=== PATIENT | male | born 1960 | race Caucasian/White ===

== ENCOUNTER 2018-05-02 15:29 | Inpatient (IN) | payer MEDICARE, MEDICAID ==
[~2018-05-02] VITALS: Ht 170.2 cm; Wt 89.8 kg
[~2018-05-02 15:29] MED LIST: ASPI-1159 PO; ATOR-2 PO; CITA10TA9 PO; CLOP75TA33 PO; CYM20 PO; FENO145 PO; HUMALOG KWIKPEN; LEVO250T2 PO; LOPE2TAB26 GT; LOSA100T14 PO; METO-539 PO; OMEP40CA34 PO
[2018-05-02] MEDS ORDERED: ACETAMINOPHEN 325MG TABLET PO STA (15:52)
[2018-05-02] MEDS ORDERED: SODIUM CHLORIDE 0.9% 1,000 ML IV ONE (16:00)
[2018-05-02] MEDS ORDERED: ACETAMINOPHEN 325MG TABLET PO ONE (16:00)
[2018-05-02] MEDS ORDERED: ONDANSETRON HCL 4MG/2ML INJ IV STA (16:00)
[2018-05-02 16:41] LABS: BASOPHILS % 0.3 % (0.0-2.0); EOSINOPHILS % 1.6 % (0.0-5.0); HEMATOCRIT. 39.2 % (42.0-52.0); HEMOGLOBIN. 12.8 g/dL (14.0-18.0); LYMPHOCYTES % 8.9 % (20.0-50.0); MEAN CORPUSCULAR HEMOGLOBIN 28.3 pg (28.0-32.0); MEAN CORPUSCULAR VOLUME 86.3 fL (80.0-94.0); MEAN PLATELET VOLUME 8.9 fl (7.4-10.4); MONOCYTES % 4.9 % (2.0-8.0); NEUTROPHILS % 84.3 % (40.0-76.0); PLATELET 225 x1000/uL (130-400); RED BLOOD CELL COUNT 4.54 mill/uL (4.7-6.1); RED CELL DISTRIBUTION WIDTH 14.4 % (11.6-14.6)
[2018-05-02 16:46] LABS: CHLORIDE 107 mEq/L (98-107); PROTHROMBIN TIME 10.3 sec (9.1-11.1)
[2018-05-02] MEDS ORDERED: CEFTRIAXONE 1 G PREMIX 50 ML IV ONE (19:45)
[2018-05-02] MEDS ORDERED: SODIUM CHLORIDE 0.9% 1000ML BAG (SEPSIS BOLUS) IV ONE (19:45)
[2018-05-02] MEDS ORDERED: LEVOFLOXACIN 500MG PREMIX 100 ML IV ONE (20:00)
[2018-05-02 20:16] LABS: CLARITY URINE CLEAR (CLEAR); COLOR URINE YELLOW (YELLOW); KETONES URINE NEGATIVE (NEGATIVE); LEUKOCYTE ESTERASE URINE 1+ (NEGATIVE); NITRITE URINE NEGATIVE (NEGATIVE); OCCULT BLOOD URINE NEGATIVE (NEGATIVE); PROTEIN URINE TRACE (NEGATIVE); SPECIFIC GRAVITY URINE 1.017 (1.005-1.030)
[2018-05-03 12:22] VITALS: BP 117/68
[2018-05-03] MEDS: INSULIN LISPRO 100 UNITS/ML SUBCUT SCH ×3 (13:10→21:00)
[2018-05-03] MEDS ORDERED: ONDANSETRON HCL 4MG/2ML INJ IV PRN (13:15)
[2018-05-03] MEDS ORDERED: TRAMADOL 50MG TABLET PO PRN (13:15)
[2018-05-03] MEDS ORDERED: DEXTROSE 50% WATER 50ML SYRINGE IV PRN (13:15)
[2018-05-03] MEDS ORDERED: IPRATROPIUM/ALBUTEROL 0.5-3(2.5)MG/3ML NEB HHN PRN (14:00)
[2018-05-03 15:43] VITALS: BP 120/73
[2018-05-03] MEDS: DULOXETINE HCL 20MG DR CAPSULE PO SCH (16:04)
[2018-05-03] MEDS: SODIUM CHLORIDE 0.45% 1,000 ML IV SCH (16:04)
[2018-05-03] MEDS: LOPERAMIDE 2 MG/10 ML UDC GT SCH ×2 (17:00→22:02)
[2018-05-03 17:13] LABS: BASOPHILS % 0.5 % (0.0-2.0); EOSINOPHILS % 5.6 % (0.0-5.0); HEMATOCRIT. 33.9 % (42.0-52.0); HEMOGLOBIN. 11.3 g/dL (14.0-18.0); LYMPHOCYTES % 32.3 % (20.0-50.0); MEAN CORPUSCULAR HEMOGLOBIN 28.9 pg (28.0-32.0); MEAN CORPUSCULAR VOLUME 86.9 fL (80.0-94.0); MEAN PLATELET VOLUME 8.8 fl (7.4-10.4); MONOCYTES % 7.5 % (2.0-8.0); NEUTROPHILS % 54.1 % (40.0-76.0); PLATELET 199 x1000/uL (130-400); RED CELL DISTRIBUTION WIDTH 14.2 % (11.6-14.6)
[2018-05-03 17:16] LABS: CHLORIDE 112 mEq/L (98-107)
[2018-05-03] MEDS: BLOOD SUGAR DIAGNOSTIC STRIP TEST SCH ×2 (17:19→21:00)
[2018-05-03 17:22] LABS: PHOSPHORUS 3.1 mg/dL (2.5-4.9)
[2018-05-03] MEDS: METRONIDAZOLE 500 MG PREMIX 100 ML IV SCH (18:43)
[2018-05-03 18:52] VITALS: BP 124/78
[2018-05-03 20:00] VITALS: BP 122/72
[2018-05-03] MEDS ORDERED: ATORVASTATIN CALCIUM 40MG TABLET PO SCH (21:00)
[2018-05-03] MEDS ORDERED: MEDICATION NOT ON FORMULARY EA (Atorvastatin Calcium 80 MG) PO SCH (21:00)
[2018-05-03] MEDS ORDERED: LOPERAMIDE HCL 2 MG GT SCH (21:00)
[2018-05-03] MEDS: LEVOFLOXACIN 500MG PREMIX 100 ML IV SCH (22:01)
[2018-05-03] MEDS: METOPROLOL TARTRATE 25MG TABLET PO SCH (22:08)
[2018-05-03] MEDS: ATORVASTATIN CALCIUM 40MG TABLET PO SCH (22:16)
[2018-05-04 00:38] VITALS: BP 99/51
[2018-05-04] MEDS: METRONIDAZOLE 500 MG PREMIX 100 ML IV SCH ×3 (01:46→17:55)
[2018-05-04] MEDS: SODIUM CHLORIDE 0.45% 1,000 ML IV SCH ×3 (01:50→21:45)
[2018-05-04 04:00] VITALS: BP 114/66
[2018-05-04] MEDS: INSULIN LISPRO 100 UNITS/ML SUBCUT SCH ×4 (07:37→21:00)
[2018-05-04] MEDS: BLOOD SUGAR DIAGNOSTIC STRIP TEST SCH ×4 (07:37→21:00)
[2018-05-04 07:41] LABS: BASOPHILS % 0.6 % (0.0-2.0); EOSINOPHILS % 8.9 % (0.0-5.0); HEMATOCRIT. 33.3 % (42.0-52.0); HEMOGLOBIN. 11.1 g/dL (14.0-18.0); LYMPHOCYTES % 36.2 % (20.0-50.0); MEAN CORPUSCULAR HEMOGLOBIN 28.8 pg (28.0-32.0); MEAN CORPUSCULAR VOLUME 86.6 fL (80.0-94.0); MEAN PLATELET VOLUME 8.9 fl (7.4-10.4); MONOCYTES % 8.4 % (2.0-8.0); NEUTROPHILS % 45.9 % (40.0-76.0); PLATELET 188 x1000/uL (130-400); RED BLOOD CELL COUNT 3.84 mill/uL (4.7-6.1); RED CELL DISTRIBUTION WIDTH 14.1 % (11.6-14.6)
[2018-05-04 08:00] VITALS: BP 117/80
[2018-05-04 08:53] LABS: CHLORIDE 109 mEq/L (98-107)
[2018-05-04] MEDS ORDERED: MEDICATION NOT ON FORMULARY EA (Omeprazole 40 MG) PO SCH (09:00)
[2018-05-04] MEDS ORDERED: MEDICATION NOT ON FORMULARY EA (Clopidogrel Bisulfate (Clopidogrel) 75 MG) PO SCH (09:00)
[2018-05-04] MEDS ORDERED: MEDICATION NOT ON FORMULARY EA (Citalopram Hydrobromide (Citalopram Hbr) 10 MG) PO SCH (09:00)
[2018-05-04 09:01] LABS: LDL CHOLESTEROL 36 mg/dL (5-100)
[2018-05-04 09:03] LABS: HDL CHOLESTEROL 26 mg/dL (40-59)
[2018-05-04] MEDS: METOPROLOL TARTRATE 25MG TABLET PO SCH ×2 (09:52→21:39)
[2018-05-04] MEDS: ASPIRIN 81MG TABLET PO SCH (09:52)
[2018-05-04] MEDS: LOPERAMIDE 2 MG/10 ML UDC GT SCH ×2 (09:52→13:00)
[2018-05-04] MEDS: CLOPIDOGREL 75MG TABLET PO SCH (09:52)
[2018-05-04] MEDS: OMEPRAZOLE 20MG CAPSULE EXTENDED RELEASE PO SCH ×2 (09:53→21:39)
[2018-05-04] MEDS: FENOFIBRATE NANOCRYSTALLIZED 145MG TABLET PO SCH (09:55)
[2018-05-04] MEDS: CITALOPRAM HYDROBROMIDE 10MG TABLET PO SCH (09:55)
[2018-05-04] MEDS: DULOXETINE HCL 20MG DR CAPSULE PO SCH ×2 (09:56→16:14)
[2018-05-04 12:00] VITALS: BP 116/56
[2018-05-04 16:00] VITALS: BP 115/89
[2018-05-04 20:00] VITALS: BP 94/53
[2018-05-04] MEDS: LEVOFLOXACIN 500MG PREMIX 100 ML IV SCH (20:00)
[2018-05-04] MEDS: ATORVASTATIN CALCIUM 40MG TABLET PO SCH (21:38)
[2018-05-05] VITALS: BP 112/61
[2018-05-05] MEDS: METRONIDAZOLE 500 MG PREMIX 100 ML IV SCH ×3 (02:37→19:42)
[2018-05-05 04:00] VITALS: BP 103/62
[2018-05-05 06:56] LABS: BASOPHILS % 0.8 % (0.0-2.0); CHLORIDE 108 mEq/L (98-107); EOSINOPHILS % 11.6 % (0.0-5.0); HEMATOCRIT. 37.7 % (42.0-52.0); HEMOGLOBIN. 12.4 g/dL (14.0-18.0); LYMPHOCYTES % 36.5 % (20.0-50.0); MEAN CORPUSCULAR HEMOGLOBIN 28.7 pg (28.0-32.0); MEAN CORPUSCULAR VOLUME 87.1 fL (80.0-94.0); MEAN PLATELET VOLUME 9.2 fl (7.4-10.4); MONOCYTES % 9.2 % (2.0-8.0); NEUTROPHILS % 41.9 % (40.0-76.0); PLATELET 211 x1000/uL (130-400); RED BLOOD CELL COUNT 4.33 mill/uL (4.7-6.1); RED CELL DISTRIBUTION WIDTH 14.2 % (11.6-14.6)
[2018-05-05 08:00] VITALS: BP 103/63
[2018-05-05] MEDS: BLOOD SUGAR DIAGNOSTIC STRIP TEST SCH ×4 (08:07→21:07)
[2018-05-05] MEDS: INSULIN LISPRO 100 UNITS/ML SUBCUT SCH ×4 (08:07→21:00)
[2018-05-05] MEDS: METOPROLOL TARTRATE 25MG TABLET PO SCH ×2 (09:00→21:00)
[2018-05-05] MEDS: SODIUM CHLORIDE 0.45% 1,000 ML IV SCH ×2 (10:11→23:49)
[2018-05-05] MEDS: OMEPRAZOLE 20MG CAPSULE EXTENDED RELEASE PO SCH ×2 (10:30→21:00)
[2018-05-05] MEDS: CLOPIDOGREL 75MG TABLET PO SCH (10:30)
[2018-05-05] MEDS: FENOFIBRATE NANOCRYSTALLIZED 145MG TABLET PO SCH (10:30)
[2018-05-05] MEDS: CITALOPRAM HYDROBROMIDE 10MG TABLET PO SCH (10:30)
[2018-05-05] MEDS: DULOXETINE HCL 20MG DR CAPSULE PO SCH ×2 (10:30→17:00)
[2018-05-05] MEDS: ASPIRIN 81MG TABLET PO SCH (10:31)
[2018-05-05 20:00] VITALS: BP 120/69
[2018-05-05] MEDS: PANTOPRAZOLE SODIUM 40 MG/VIAL IV SCH (20:55)
[2018-05-05] MEDS: LEVOFLOXACIN 500MG PREMIX 100 ML IV SCH (20:55)
[2018-05-05] MEDS: ATORVASTATIN CALCIUM 40MG TABLET PO SCH (21:00)
[2018-05-06] VITALS: BP 124/78
[2018-05-06] MEDS: METRONIDAZOLE 500 MG PREMIX 100 ML IV SCH ×3 (01:14→19:35)
[2018-05-06] MEDS: BLOOD SUGAR DIAGNOSTIC STRIP TEST SCH ×3 (05:22→21:00)
[2018-05-06 06:27] LABS: BASOPHILS % 0.7 % (0.0-2.0); EOSINOPHILS % 7.1 % (0.0-5.0); HEMATOCRIT. 36.1 % (42.0-52.0); HEMOGLOBIN. 12.1 g/dL (14.0-18.0); LYMPHOCYTES % 31.8 % (20.0-50.0); MEAN CORPUSCULAR VOLUME 86.4 fL (80.0-94.0); MEAN PLATELET VOLUME 8.6 fl (7.4-10.4); MONOCYTES % 6.4 % (2.0-8.0); PLATELET 192 x1000/uL (130-400); RED BLOOD CELL COUNT 4.17 mill/uL (4.7-6.1); RED CELL DISTRIBUTION WIDTH 14.1 % (11.6-14.6)
[2018-05-06 06:30] LABS: INR 1.1; PARTIAL THROMBOPLASTIN TIME 26.6 sec (23.4-31.0); PROTHROMBIN TIME 11.1 sec (9.1-11.1)
[2018-05-06 06:42] LABS: CHLORIDE 107 mEq/L (98-107)
[2018-05-06] MEDS: INSULIN LISPRO 100 UNITS/ML SUBCUT SCH ×4 (07:30→21:00)
[2018-05-06 08:00] VITALS: BP 115/70
[2018-05-06] MEDS: CITALOPRAM HYDROBROMIDE 10MG TABLET PO SCH (09:00)
[2018-05-06] MEDS: FENOFIBRATE NANOCRYSTALLIZED 145MG TABLET PO SCH (09:00)
[2018-05-06] MEDS: METOPROLOL TARTRATE 25MG TABLET PO SCH ×2 (09:00→21:32)
[2018-05-06] MEDS: OMEPRAZOLE 20MG CAPSULE EXTENDED RELEASE PO SCH ×2 (09:00→21:32)
[2018-05-06] MEDS: DULOXETINE HCL 20MG DR CAPSULE PO SCH ×2 (09:00→21:33)
[2018-05-06] MEDS: PANTOPRAZOLE SODIUM 40 MG/VIAL IV SCH ×2 (10:09→21:31)
[2018-05-06] MEDS ORDERED: LIDOCAINE HCL 1% 20ML VIAL (Pyxis) INJ ONE (13:04)
[2018-05-06] MEDS: SODIUM CHLORIDE 0.45% 1,000 ML IV SCH (13:37)
[2018-05-06] MEDS ORDERED: SODIUM CHLORIDE 0.9% 10ML VIAL ONE (13:52)
[2018-05-06] MEDS ORDERED: MIDAZOLAM HCL 5 MG/5 ML VIAL ONE (17:11)
[2018-05-06] MEDS ORDERED: FENTANYL CITRATE/PF 50MCG/ML 2ML VIAL ONE (17:12)
[2018-05-06] MEDS ORDERED: MIDAZOLAM HCL 5 MG/5 ML VIAL IV PRN (17:12)
[2018-05-06] MEDS ORDERED: FENTANYL CITRATE/PF 50MCG/ML 2ML VIAL IV PRN (17:13)
[2018-05-06 20:00] VITALS: BP 134/79
[2018-05-06] MEDS ORDERED: DEXT 5%/0.45% NACL 1000ML 1,000 ML IV SCH (20:45)
[2018-05-06] MEDS: ATORVASTATIN CALCIUM 40MG TABLET PO SCH (21:31)
[2018-05-06] MEDS: LEVOFLOXACIN 500MG PREMIX 100 ML IV SCH (21:31)
[2018-05-06 22:51] VITALS: BP 134/71
[2018-05-07] VITALS: BP 131/71
[2018-05-07] MEDS: METRONIDAZOLE 500 MG PREMIX 100 ML IV SCH (02:08)
== END 2018-05-07 03:00 | disposition home health service (06) | DRG 871 ==
LOC: ER 15:29 → 7WST 19:48 → EDBEDREQSVC 20:06 → EDBEDREQ 20:06 → ENRESERV 05-03 07:35
PROVIDERS: ADMIT Family Medicine Adult Medicine; ATTEND Family Medicine Adult Medicine
PROC: 0D20XUZ Change Feeding Device in Upper Intestinal Tract, External Approach (ICD-10-PCS; principal; 2018-05-06 16:00)
DX: A40.1 Sepsis due to streptococcus, group B (principal); J69.0 Pneumonitis due to inhalation of food and vomit; J96.00 Acute respiratory failure, unspecified whether with hypoxia or hypercapnia; N39.0 Urinary tract infection, site not specified; E44.1 Mild protein-calorie malnutrition; K94.23 Gastrostomy malfunction; I69.351 Hemiplegia and hemiparesis following cerebral infarction affecting right dominant side; E11.9 Type 2 diabetes mellitus without complications; D64.9 Anemia, unspecified; Y83.8 Other surgical procedures as the cause of abnormal reaction of the patient, or of later complication, without mention of misadventure at the time of the procedure; Y73.8 Miscellaneous gastroenterology and urology devices associated with adverse incidents, not elsewhere classified; K52.9 Noninfective gastroenteritis and colitis, unspecified; E78.00 Pure hypercholesterolemia, unspecified; E78.5 Hyperlipidemia, unspecified; E86.0 Dehydration; I11.9 Hypertensive heart disease without heart failure; K29.70 Gastritis, unspecified, without bleeding; K57.30 Diverticulosis of large intestine without perforation or abscess without bleeding; N28.1 Cyst of kidney, acquired; R13.12 Dysphagia, oropharyngeal phase; I69.320 Aphasia following cerebral infarction; Z68.31 Body mass index [BMI] 31.0-31.9, adult; Z79.82 Long term (current) use of aspirin; Z79.899 Other long term (current) drug therapy; Z79.2 Long term (current) use of antibiotics
CPT/HCPCS: 36415; 71045; 74176; 80048; 80061; 82962; 83036; 83605; 83735; 84100; 84145; 84443; 84484; 87804; 93005; 93306; 96365; 99285; A4216; C9113; J0696; J1956; J2250; J2405; J3010; J3490; J7030; J7050; J7060

== ENCOUNTER 2018-09-22 11:24 | Inpatient (IN) | payer MEDICARE, MEDICAID ==
[~2018-09-22] VITALS: Ht 165.1 cm; Wt 84.5 kg
[2018-09-22] MEDS ORDERED: ACETAMINOPHEN 650MG SUPP ONE (11:50)
[2018-09-22] MEDS ORDERED: ONDANSETRON HCL 4MG/2ML INJ ONE (12:10)
[2018-09-22 12:28] LABS: CHLORIDE 112 mEq/L (98-107)
[2018-09-22 12:30] LABS: HEMATOCRIT. 40.1 % (42.0-52.0); HEMOGLOBIN. 12.7 g/dL (14.0-18.0); MEAN CORPUSCULAR HEMOGLOBIN 27.4 pg (28.0-32.0); MEAN CORPUSCULAR VOLUME 86.3 fL (80.0-94.0); MEAN PLATELET VOLUME 8.7 fl (7.4-10.4); PLATELET 269 x1000/uL (130-400); RED BLOOD CELL COUNT 4.65 mill/uL (4.7-6.1); RED CELL DISTRIBUTION WIDTH 14.3 % (11.6-14.6)
[2018-09-22] MEDS ORDERED: VANCOMYCIN 1 G PREMIX 200 ML IV ONE (12:30)
[2018-09-22] MEDS ORDERED: PIPERACILLIN/TAZ 3.375G PREMIX 50 ML IV ONE (12:30)
[2018-09-22] MEDS ORDERED: SODIUM CHLORIDE 0.9% 1000ML BAG (SEPSIS BOLUS) IV ONE (12:30)
[2018-09-22 12:33] LABS: PROTHROMBIN TIME 10.3 sec (9.6-11.0)
[2018-09-22 12:36] LABS: CLARITY URINE CLOUDY (CLEAR); COLOR URINE YELLOW (YELLOW); KETONES URINE NEGATIVE (NEGATIVE); LEUKOCYTE ESTERASE URINE 2+ (NEGATIVE); NITRITE URINE NEGATIVE (NEGATIVE); OCCULT BLOOD URINE 1+ (NEGATIVE); PROTEIN URINE 2+ (NEGATIVE); SPECIFIC GRAVITY URINE 1.013 (1.005-1.030)
[2018-09-22 13:23] LABS: PLATELET ESTIMATE NORMAL
[2018-09-22 16:00] VITALS: BP 133/82
[2018-09-22 16:08] VITALS: BP 123/73
[2018-09-22] MEDS ORDERED: MAGNESIUM/ALUMINUM HYDROXIDE/SIMETHICONE 30ML UDC PO PRN (16:30)
[2018-09-22] MEDS ORDERED: GUAIFENESIN 200MG/10ML SUGAR FREE UDC PO PRN (16:30)
[2018-09-22] MEDS ORDERED: DOCUSATE SODIUM 100MG CAPSULE PO PRN (16:30)
[2018-09-22] MEDS ORDERED: ACETAMINOPHEN 650MG/20.3ML UDC GT PRN (16:30)
[2018-09-22] MEDS ORDERED: ONDANSETRON HCL 4MG/2ML INJ IV PRN (16:30)
[2018-09-22] MEDS ORDERED: TRAMADOL 50MG TABLET PO PRN (16:30)
[2018-09-22] MEDS ORDERED: CLONIDINE 0.1MG TABLET PO PRN (16:30)
[2018-09-22] MEDS ORDERED: IPRATROPIUM/ALBUTEROL 0.5-3(2.5)MG/3ML NEB INH PRN (16:30)
[2018-09-22] MEDS ORDERED: NA PHOS,M-B/NA PHOS,DI-BA ENEMA 118ML PR PRN (16:30)
[2018-09-22 17:59] VITALS: BP 119/59
[2018-09-22 18:00] VITALS: BP 108/69
[2018-09-22] MEDS: ENOXAPARIN 40MG/0.4ML SYR SUBCUT SCH (18:08)
[2018-09-22] MEDS: DEXT 5%/0.9% NACL KCL 20MEQ/L 1,000 ML IV SCH (18:08)
[2018-09-22] MEDS: CEFTRIAXONE 1 G PREMIX 50 ML IV SCH (18:09)
[2018-09-22 20:00] VITALS: BP 118/74
[2018-09-22] MEDS: LEVOFLOXACIN 500MG PREMIX 100 ML IV SCH (21:03)
[2018-09-22] MEDS: FAMOTIDINE 20MG TABLET PO SCH (21:28)
[2018-09-22] MEDS: ASCORBIC ACID 500 MG TABLET PO SCH (21:28)
[2018-09-22] MEDS: METOPROLOL TARTRATE 25MG TABLET PO SCH (21:28)
[2018-09-22 22:00] VITALS: BP 119/66
[2018-09-23] VITALS (13 sets, daily range): BP systolic 114–139; BP diastolic 72–83
[2018-09-23] MEDS: DEXT 5%/0.9% NACL KCL 20MEQ/L 1,000 ML IV SCH ×3 (01:53→18:00)
[2018-09-23] MEDS: FAMOTIDINE 20MG TABLET PO SCH ×2 (10:57→21:00)
[2018-09-23] MEDS: METOPROLOL TARTRATE 25MG TABLET PO SCH ×2 (10:57→21:00)
[2018-09-23] MEDS: CLOPIDOGREL 75MG TABLET PO SCH (10:57)
[2018-09-23] MEDS: ASCORBIC ACID 500 MG TABLET PO SCH ×2 (10:57→21:00)
[2018-09-23] MEDS: ENOXAPARIN 40MG/0.4ML SYR SUBCUT SCH (18:16)
[2018-09-23] MEDS: CEFTRIAXONE 1 G PREMIX 50 ML IV SCH (18:33)
[2018-09-23] MEDS: LEVOFLOXACIN 500MG PREMIX 100 ML IV SCH (21:00)
[2018-09-24] VITALS (9 sets, daily range): BP systolic 120–139; BP diastolic 76–92
[2018-09-24] MEDS: DEXT 5%/0.9% NACL KCL 20MEQ/L 1,000 ML IV SCH (03:30)
[2018-09-24] MEDS: ASCORBIC ACID 500 MG TABLET PO SCH ×2 (09:25→21:33)
[2018-09-24] MEDS: CLOPIDOGREL 75MG TABLET PO SCH (09:25)
[2018-09-24] MEDS: METOPROLOL TARTRATE 25MG TABLET PO SCH ×2 (09:27→21:34)
[2018-09-24] MEDS: FAMOTIDINE 20MG TABLET PO SCH ×2 (09:27→21:34)
[2018-09-24] MEDS: CEFTRIAXONE 1 G PREMIX 50 ML IV SCH (18:19)
[2018-09-24] MEDS: ENOXAPARIN 40MG/0.4ML SYR SUBCUT SCH (18:20)
[2018-09-24] MEDS: LEVOFLOXACIN 500MG PREMIX 100 ML IV SCH (21:33)
[2018-09-25] VITALS: BP 123/83
[2018-09-25 04:00] VITALS: BP 126/83
[2018-09-25 08:00] VITALS: BP 127/80
[2018-09-25] MEDS: FAMOTIDINE 20MG TABLET PO SCH ×2 (10:07→22:30)
[2018-09-25] MEDS: ASCORBIC ACID 500 MG TABLET PO SCH ×2 (10:07→22:30)
[2018-09-25] MEDS: CLOPIDOGREL 75MG TABLET PO SCH (10:07)
[2018-09-25] MEDS: METOPROLOL TARTRATE 25MG TABLET PO SCH ×2 (10:08→22:30)
[2018-09-25 12:00] VITALS: BP 109/44
[2018-09-25 16:00] VITALS: BP 135/91
[2018-09-25] MEDS: CEFAZOLIN 1000MG PREMIX 50 ML IV SCH ×2 (17:20→22:28)
[2018-09-25] MEDS: ENOXAPARIN 40MG/0.4ML SYR SUBCUT SCH (17:21)
[2018-09-25 20:00] VITALS: BP 137/91
[2018-09-26] VITALS: BP 123/70
[2018-09-26 04:00] VITALS: BP 128/57
[2018-09-26] MEDS: CEFAZOLIN 1000MG PREMIX 50 ML IV SCH ×3 (06:18→21:11)
[2018-09-26 07:59] LABS: HEMATOCRIT 37.6 % (42.0-52.0); HEMOGLOBIN 12.4 g/dL (14.0-18.0); MEAN CORPUSCULAR HEMOGLOBIN 28.1 pg (28.0-32.0); PLATELET 278 x1000/uL (130-400); RED BLOOD CELL COUNT 4.43 mill/uL (4.7-6.1); RED CELL DISTRIBUTION WIDTH 14.8 % (11.6-14.6)
[2018-09-26 08:00] VITALS: BP 129/82
[2018-09-26] MEDS: ASCORBIC ACID 500 MG TABLET PO SCH ×2 (09:46→21:11)
[2018-09-26] MEDS: FAMOTIDINE 20MG TABLET PO SCH ×2 (09:46→21:11)
[2018-09-26] MEDS: CLOPIDOGREL 75MG TABLET PO SCH (09:46)
[2018-09-26] MEDS: METOPROLOL TARTRATE 25MG TABLET PO SCH ×2 (09:47→21:11)
[2018-09-26 12:00] VITALS: BP 109/76
[2018-09-26 16:00] VITALS: BP 116/81
[2018-09-26] MEDS: ENOXAPARIN 40MG/0.4ML SYR SUBCUT SCH (17:22)
[2018-09-26 20:00] VITALS: BP 116/82
[2018-09-27] VITALS: BP 123/79
[2018-09-27 04:00] VITALS: BP 111/86
[2018-09-27] MEDS: CEFAZOLIN 1000MG PREMIX 50 ML IV SCH (05:45)
[2018-09-27 08:00] VITALS: BP 134/77
[2018-09-27] MEDS: ASCORBIC ACID 500 MG TABLET PO SCH (08:52)
[2018-09-27] MEDS: FAMOTIDINE 20MG TABLET PO SCH (08:52)
[2018-09-27] MEDS: METOPROLOL TARTRATE 25MG TABLET PO SCH (08:52)
[2018-09-27] MEDS: CLOPIDOGREL 75MG TABLET PO SCH (08:52)
[2018-09-27 12:00] VITALS: BP 120/80
[2018-09-27 12:07] VITALS: BP 120/80
== END 2018-09-27 15:30 | disposition home or self-care (01) | DRG 871 ==
LOC: ER 12:37 → 5EST 13:51 → EDBEDREQ 13:53 → ENRESERV 15:17 → SUPCPDRO 15:59 → 5EST 16:00 → 5WST 09-24 15:57
PROVIDERS: ADMIT Internal Medicine; ATTEND Internal Medicine
DX: A41.9 Sepsis, unspecified organism (principal); G92 Toxic encephalopathy; E44.1 Mild protein-calorie malnutrition; N39.0 Urinary tract infection, site not specified; R65.20 Severe sepsis without septic shock; E11.9 Type 2 diabetes mellitus without complications; I10 Essential (primary) hypertension; Z79.02 Long term (current) use of antithrombotics/antiplatelets; Z79.4 Long term (current) use of insulin; Z86.73 Personal history of transient ischemic attack (TIA), and cerebral infarction without residual deficits; Z93.1 Gastrostomy status; Z79.899 Other long term (current) drug therapy; Z79.2 Long term (current) use of antibiotics; Z79.82 Long term (current) use of aspirin; Z68.31 Body mass index [BMI] 31.0-31.9, adult
CPT/HCPCS: 36415; 71045; 74176; 80061; 83036; 83605; 83880; 84145; 84484; 85027; 87077; 87186; 93005; 93306; 93970; 96365; 96366; 96367; 99291; J0690; J0696; J1650; J1956; J2405; J2543; J3370; J7030; J7050

== ENCOUNTER 2018-12-16 15:06 | Inpatient (IN) | payer MEDICARE, MEDICAID ==
[~2018-12-16] VITALS: Ht 170.2 cm; Wt 89.9 kg
[~2018-12-16 15:06] MED LIST changes: -ASPI-1159 PO; +ASPI-1393 PO; -LOSA100T14 PO; +LOSA100T32 PO
[2018-12-16] MEDS ORDERED: VANCOMYCIN 1 G PREMIX 200 ML IV ONE (15:45)
[2018-12-16] MEDS ORDERED: SODIUM CHLORIDE 0.9% 1000ML BAG (SEPSIS BOLUS) IV ONE (15:45)
[2018-12-16] MEDS ORDERED: PIPERACILLIN/TAZ 3.375G PREMIX 50 ML IV ONE (15:45)
[2018-12-16 16:20] LABS: HEMATOCRIT. 37.6 % (42.0-52.0); HEMOGLOBIN. 12.4 g/dL (14.0-18.0); MEAN CORPUSCULAR VOLUME 85.4 fL (80.0-94.0); PLATELET 241 x1000/uL (130-400); RED BLOOD CELL COUNT 4.41 mill/uL (4.7-6.1); RED CELL DISTRIBUTION WIDTH 16.6 % (11.6-14.6)
[2018-12-16 16:23] LABS: PROTHROMBIN TIME 9.9 sec (9.6-11.0)
[2018-12-16 17:15] LABS: CHLORIDE 106 mEq/L (98-107)
[2018-12-16 17:17] LABS: PLATELET ESTIMATE NORMAL
[2018-12-16 17:47] LABS: CLARITY URINE CLEAR (CLEAR); COLOR URINE YELLOW (YELLOW); KETONES URINE NEGATIVE (NEGATIVE); LEUKOCYTE ESTERASE URINE NEGATIVE (NEGATIVE); NITRITE URINE NEGATIVE (NEGATIVE); OCCULT BLOOD URINE NEGATIVE (NEGATIVE); PROTEIN URINE NEGATIVE (NEGATIVE); SPECIFIC GRAVITY URINE 1.015 (1.005-1.030)
[2018-12-16 20:00] VITALS: BP 95/57
[2018-12-16] MEDS ORDERED: IPRATROPIUM/ALBUTEROL 0.5-3(2.5)MG/3ML NEB INH PRN (21:15)
[2018-12-16] MEDS ORDERED: DEXTROSE 50% WATER 50ML SYRINGE IV PRN (21:15)
[2018-12-16] MEDS ORDERED: NA PHOS,M-B/NA PHOS,DI-BA ENEMA 118ML PR PRN (21:15)
[2018-12-16] MEDS ORDERED: PIPERACILLIN/TAZ 3.375G PREMIX 50 ML IV SCH (21:15)
[2018-12-16] MEDS ORDERED: TRAMADOL 50MG TABLET PO PRN (21:15)
[2018-12-16] MEDS ORDERED: DOCUSATE SODIUM 100MG CAPSULE PO PRN (21:15)
[2018-12-16] MEDS ORDERED: ZOLPIDEM TARTRATE 5MG TABLET PO PRN (21:15)
[2018-12-16] MEDS ORDERED: ONDANSETRON HCL 4MG/2ML INJ IV PRN (21:15)
[2018-12-16] MEDS ORDERED: MAGNESIUM/ALUMINUM HYDROXIDE/SIMETHICONE 30ML UDC PO PRN (21:15)
[2018-12-16] MEDS ORDERED: ACETAMINOPHEN 325MG TABLET PO PRN (21:15)
[2018-12-16] MEDS ORDERED: NITROGLYCERIN 0.4MG TABLET SL SL PRN (21:15)
[2018-12-16] MEDS ORDERED: GUAIFENESIN 200MG/10ML SUGAR FREE UDC PO PRN (21:15)
[2018-12-16] MEDS ORDERED: CLONIDINE 0.1MG TABLET PO PRN (21:15)
[2018-12-16] MEDS ORDERED: KETOROLAC 15MG/ML VIAL IV PRN (21:15)
[2018-12-16] MEDS: DEXT 5%/0.45% NACL 1000ML 1,000 ML IV SCH (23:35)
[2018-12-17] VITALS (7 sets, daily range): BP systolic 92–103; BP diastolic 50–58
[2018-12-17] MEDS: PIPERACILLIN/TAZ 3.375G PREMIX 50 ML IV SCH ×3 (00:37→15:57)
[2018-12-17 01:09] LABS: CREATINE KINASE 39 IU/L (39-308)
[2018-12-17 01:10] LABS: CREATINE KINASE MB FRACTION < 1.0 ng/mL (0.5-3.6)
[2018-12-17] MEDS: VANCOMYCIN 1250MG in DEXTROSE 5% WATER 250ML IV SCH ×2 (02:37→12:56)
[2018-12-17 06:35] LABS: CHLORIDE 108 mEq/L (98-107)
[2018-12-17 06:36] LABS: BASOPHILS % 0.3 % (0.0-2.0); EOSINOPHILS % 3.5 % (0.0-5.0); HEMOGLOBIN. 10.6 g/dL (14.0-18.0); MEAN CORPUSCULAR HEMOGLOBIN 28.2 pg (28.0-32.0); MEAN CORPUSCULAR VOLUME 85.4 fL (80.0-94.0); MEAN PLATELET VOLUME 9.1 fl (7.4-10.4); MONOCYTES % 7.9 % (2.0-8.0); NEUTROPHILS % 60.3 % (40.0-76.0); PLATELET 178 x1000/uL (130-400); RED BLOOD CELL COUNT 3.75 mill/uL (4.7-6.1); RED CELL DISTRIBUTION WIDTH 16.6 % (11.6-14.6)
[2018-12-17 06:55] LABS: CREATINE KINASE 42 IU/L (39-308)
[2018-12-17 06:57] LABS: CREATINE KINASE MB FRACTION < 1.0 ng/mL (0.5-3.6)
[2018-12-17] MEDS: BLOOD SUGAR DIAGNOSTIC STRIP TEST SCH ×4 (07:25→21:14)
[2018-12-17] MEDS: INSULIN LISPRO 100 UNITS/ML SUBCUT SCH ×4 (07:25→21:00)
[2018-12-17] MEDS: ENOXAPARIN 40MG/0.4ML SYR SUBCUT SCH (08:33)
[2018-12-17] MEDS: ZINC SULFATE 220 MG ( 50 ) CAPSULE PO SCH (08:33)
[2018-12-17] MEDS: CLOPIDOGREL 75MG TABLET PO SCH (08:33)
[2018-12-17] MEDS: ASCORBIC ACID 500 MG TABLET PO SCH ×2 (08:34→21:14)
[2018-12-17] MEDS: FAMOTIDINE 20MG TABLET PO SCH ×2 (08:34→21:14)
[2018-12-17] MEDS: DEXT 5%/0.45% NACL 1000ML 1,000 ML IV SCH (08:35)
[2018-12-17] MEDS: ASPIRIN 81MG TABLET PO SCH (08:57)
[2018-12-17] MEDS ORDERED: ASPIRIN 81MG EC TABLET PO SCH (09:00)
[2018-12-17] MEDS: ATORVASTATIN CALCIUM 40MG TABLET PO SCH (21:14)
[2018-12-18] VITALS: BP 101/58
[2018-12-18] MEDS: PIPERACILLIN/TAZ 3.375G PREMIX 50 ML IV SCH ×4 (00:12→23:48)
[2018-12-18] MEDS: VANCOMYCIN 1 G PREMIX 200 ML IV SCH ×2 (02:44→12:36)
[2018-12-18 04:00] VITALS: BP 109/62
[2018-12-18] MEDS: BLOOD SUGAR DIAGNOSTIC STRIP TEST SCH ×4 (06:37→21:00)
[2018-12-18] MEDS: INSULIN LISPRO 100 UNITS/ML SUBCUT SCH ×4 (07:40→21:00)
[2018-12-18 08:00] VITALS: BP 110/65
[2018-12-18] MEDS: CLOPIDOGREL 75MG TABLET PO SCH (08:43)
[2018-12-18] MEDS: ASPIRIN 81MG TABLET PO SCH (08:43)
[2018-12-18] MEDS: FAMOTIDINE 20MG TABLET PO SCH ×2 (08:43→21:39)
[2018-12-18] MEDS: ZINC SULFATE 220 MG ( 50 ) CAPSULE PO SCH (08:43)
[2018-12-18] MEDS: ENOXAPARIN 40MG/0.4ML SYR SUBCUT SCH (08:43)
[2018-12-18] MEDS: ASCORBIC ACID 500 MG TABLET PO SCH ×2 (08:44→21:39)
[2018-12-18 12:00] VITALS: BP 120/71
[2018-12-18 16:00] VITALS: BP 107/69
[2018-12-18 20:00] VITALS: BP 123/65
[2018-12-18] MEDS: ATORVASTATIN CALCIUM 40MG TABLET PO SCH (21:39)
[2018-12-19] VITALS: BP 110/65
[2018-12-19] MEDS: VANCOMYCIN 1 G PREMIX 200 ML IV SCH (00:34)
[2018-12-19 04:00] VITALS: BP 110/68
[2018-12-19] MEDS: BLOOD SUGAR DIAGNOSTIC STRIP TEST SCH ×4 (07:10→21:00)
[2018-12-19] MEDS: INSULIN LISPRO 100 UNITS/ML SUBCUT SCH ×4 (07:40→21:00)
[2018-12-19] MEDS: ASCORBIC ACID 500 MG TABLET PO SCH ×2 (09:12→22:34)
[2018-12-19] MEDS: PIPERACILLIN/TAZ 3.375G PREMIX 50 ML IV SCH ×2 (09:12→17:36)
[2018-12-19] MEDS: CLOPIDOGREL 75MG TABLET PO SCH (09:12)
[2018-12-19] MEDS: ASPIRIN 81MG TABLET PO SCH (09:12)
[2018-12-19] MEDS: FAMOTIDINE 20MG TABLET PO SCH ×2 (09:12→22:34)
[2018-12-19] MEDS: ZINC SULFATE 220 MG ( 50 ) CAPSULE PO SCH (09:12)
[2018-12-19] MEDS: ENOXAPARIN 40MG/0.4ML SYR SUBCUT SCH (09:13)
[2018-12-19 12:00] VITALS: BP 116/72
[2018-12-19 16:00] VITALS: BP 129/76
[2018-12-19 20:00] VITALS: BP 117/67
[2018-12-19] MEDS: ATORVASTATIN CALCIUM 40MG TABLET PO SCH (22:34)
[2018-12-20 00:55] VITALS: BP 121/70
[2018-12-20] MEDS: PIPERACILLIN/TAZ 3.375G PREMIX 50 ML IV SCH ×2 (01:54→10:02)
[2018-12-20 04:00] VITALS: BP_SYST 115; BP_SYST 123; BP_DIAS 70; BP_DIAS 81
[2018-12-20] MEDS: BLOOD SUGAR DIAGNOSTIC STRIP TEST SCH ×3 (07:10→17:39)
[2018-12-20] MEDS: INSULIN LISPRO 100 UNITS/ML SUBCUT SCH ×2 (07:40→12:40)
[2018-12-20] MEDS: CLOPIDOGREL 75MG TABLET PO SCH (10:01)
[2018-12-20] MEDS: ASCORBIC ACID 500 MG TABLET PO SCH (10:01)
[2018-12-20] MEDS: ASPIRIN 81MG TABLET PO SCH (10:01)
[2018-12-20] MEDS: FAMOTIDINE 20MG TABLET PO SCH (10:01)
[2018-12-20] MEDS: ENOXAPARIN 40MG/0.4ML SYR SUBCUT SCH (10:01)
[2018-12-20] MEDS: ZINC SULFATE 220 MG ( 50 ) CAPSULE PO SCH (10:02)
[2018-12-20 12:00] VITALS: BP 122/80
[2018-12-20] MEDS ORDERED: DIPHENHYDRAMINE 25MG CAPSULE PO PRN (13:30)
[2018-12-20 16:00] VITALS: BP 131/81
[2018-12-20] MEDS ORDERED: PIPERACILLIN/TAZOBACTAM 3.375 G in DEXT 5% WATER 100 ML IV SCH (16:00)
[2018-12-20 18:16] VITALS: BP 131/81
[2018-12-20 20:00] VITALS: BP 124/73
== END 2018-12-20 21:00 | disposition home or self-care (01) | DRG 871 ==
LOC: ER 17:06 → 8WST 17:20 → EDBEDREQ 17:29 → EDBEDREQSVC 17:29 → EDBEDREQTM 17:29 → ENRESERV 20:19
PROVIDERS: ADMIT Internal Medicine; ATTEND Internal Medicine
DX: A41.9 Sepsis, unspecified organism (principal); G92 Toxic encephalopathy; E44.1 Mild protein-calorie malnutrition; I69.351 Hemiplegia and hemiparesis following cerebral infarction affecting right dominant side; R65.20 Severe sepsis without septic shock; D63.8 Anemia in other chronic diseases classified elsewhere; E87.5 Hyperkalemia; E11.9 Type 2 diabetes mellitus without complications; E78.00 Pure hypercholesterolemia, unspecified; E78.5 Hyperlipidemia, unspecified; M21.169 Varus deformity, not elsewhere classified, unspecified knee; L89.899 Pressure ulcer of other site, unspecified stage; L89.159 Pressure ulcer of sacral region, unspecified stage; I10 Essential (primary) hypertension; K21.9 Gastro-esophageal reflux disease without esophagitis; Z74.01 Bed confinement status; Z79.4 Long term (current) use of insulin; Z79.2 Long term (current) use of antibiotics; Z79.82 Long term (current) use of aspirin; Z79.899 Other long term (current) drug therapy; Z68.31 Body mass index [BMI] 31.0-31.9, adult
CPT/HCPCS: 36415; 71045; 80061; 80202; 82550; 82553; 82962; 83036; 83605; 83880; 84145; 84484; 93005; 93306; 93970; 96365; 96368; 99291; A6261; J1650; J1885; J2543; J3370; J7030; J7040; J7050; J7060; J7070; A4315

== ENCOUNTER 2019-02-22 10:17 | Inpatient (IN) | payer MEDICARE, OTHER ==
[~2019-02-22] VITALS: Ht 170.2 cm; Wt 91.6 kg
[2019-02-22] MEDS ORDERED: ACETAMINOPHEN 325MG TABLET PO STA (10:23)
[2019-02-22] MEDS ORDERED: SODIUM CHLORIDE 0.9% 1,000 ML IV ONE (10:30)
[2019-02-22] MEDS ORDERED: ACETAMINOPHEN 325MG SUPP PR ONE (10:30)
[2019-02-22 10:46] LABS: HEMATOCRIT. 36.2 % (42.0-52.0); HEMOGLOBIN. 11.6 g/dL (14.0-18.0); MEAN CORPUSCULAR HEMOGLOBIN 27.1 pg (28.0-32.0); MEAN CORPUSCULAR VOLUME 84.3 fL (80.0-94.0)
[2019-02-22 10:52] LABS: CHLORIDE 107 mEq/L (98-107)
[2019-02-22] MEDS ORDERED: VANCOMYCIN 1 G PREMIX 200 ML IV ONE (11:00)
[2019-02-22] MEDS ORDERED: PIPERACILLIN/TAZ 3.375G PREMIX 50 ML IV ONE (11:00)
[2019-02-22 11:07] LABS: CLARITY URINE CLEAR (CLEAR); COLOR URINE YELLOW (YELLOW); KETONES URINE NEGATIVE (NEGATIVE); LEUKOCYTE ESTERASE URINE TRACE (NEGATIVE); NITRITE URINE NEGATIVE (NEGATIVE); OCCULT BLOOD URINE TRACE (NEGATIVE); PH URINE 5.5 (4.5-8.0); PROTEIN URINE 3+ (NEGATIVE); SPECIFIC GRAVITY URINE 1.018 (1.005-1.030)
[2019-02-22 11:28] LABS: PLATELET 315 x1000/uL (130-400)
[2019-02-22 12:35] LABS: BG BASE EXCESS -3.2 mmol/L (-2.0-2.0); BG CARBOXYHEMOGLOBIN 0.7 % (0.5-1.5); BG DEOXYHEMOGLOBIN 5.8 % (0.0-5.0); BG FRACTION INSPIRED OXYGEN 36; BG HCO3 ACT 22.4 mmol/L (22.0-26.0); BG METHEMOGLOBIN 0.2 % (0.0-1.5); BG OXYGEN SATURATION 94.1 % (92.0-98.5); BG OXYHEMOGLOBIN 93.3 % (94.0-97.0); BG PCO2 42.1 mmHg (35.0-45.0); BG PH 7.343 (7.350-7.450); BG PO2 71.7 mmHg (75.0-100.0); BG SAMPLE SITE HEEL; BG TOTAL HEMOGLOBIN 11.7 g/dL (12.0-18.0); BG VENT MODE NASAL CANNULA
[2019-02-22 16:00] VITALS: BP_SYST 135; BP_SYST 143; BP_DIAS 84
[2019-02-22] MEDS ORDERED: ACETAMINOPHEN 325MG TABLET PO PRN (16:00)
[2019-02-22] MEDS ORDERED: CLONIDINE 0.1MG TABLET PO PRN (16:00)
[2019-02-22] MEDS ORDERED: ONDANSETRON HCL 4MG/2ML INJ IV PRN (16:00)
[2019-02-22] MEDS ORDERED: LORAZEPAM 2MG/ML CPJ IV PRN (16:00)
[2019-02-22] MEDS: INSULIN LISPRO 100 UNITS/ML SUBCUT SCH ×2 (17:45→23:45)
[2019-02-22] MEDS ORDERED: DEXTROSE 50% WATER 50ML SYRINGE IV PRN (17:45)
[2019-02-22 18:00] VITALS: BP 131/84
[2019-02-22] MEDS: BLOOD SUGAR DIAGNOSTIC STRIP TEST SCH (18:16)
[2019-02-22] MEDS: SODIUM CHLORIDE 0.9% 1,000 ML IV SCH (18:17)
[2019-02-22] MEDS: LEVOFLOXACIN 500MG PREMIX 100 ML IV SCH (18:17)
[2019-02-22] MEDS: ENOXAPARIN 40MG/0.4ML SYR SUBCUT SCH (18:17)
[2019-02-22 20:00] VITALS: BP 132/92
[2019-02-22 22:00] VITALS: BP 111/82
[2019-02-23] VITALS (12 sets, daily range): BP systolic 109–155; BP diastolic 63–97
[2019-02-23] MEDS: BLOOD SUGAR DIAGNOSTIC STRIP TEST SCH ×5 (00:15→23:45)
[2019-02-23] MEDS: SODIUM CHLORIDE 0.9% 1,000 ML IV SCH (05:32)
[2019-02-23] MEDS: INSULIN LISPRO 100 UNITS/ML SUBCUT SCH ×4 (05:42→23:45)
[2019-02-23 07:20] LABS: CHLORIDE 112 mEq/L (98-107)
[2019-02-23 08:07] LABS: HEMOGLOBIN. 10.4 g/dL (14.0-18.0); MEAN CORPUSCULAR HEMOGLOBIN 27.9 pg (28.0-32.0); MEAN CORPUSCULAR VOLUME 83.4 fL (80.0-94.0); RED BLOOD CELL COUNT 3.72 mill/uL (4.7-6.1); RED CELL DISTRIBUTION WIDTH 15.8 % (11.6-14.6)
[2019-02-23] MEDS: AMLODIPINE 10MG TABLET PO SCH (09:37)
[2019-02-23] MEDS ORDERED: VANCOMYCIN 1250MG in DEXTROSE 5% WATER 250ML IV SCH (13:00)
[2019-02-23] MEDS: LEVOFLOXACIN 500MG PREMIX 100 ML IV SCH (17:18)
[2019-02-23] MEDS: ENOXAPARIN 40MG/0.4ML SYR SUBCUT SCH (17:19)
[2019-02-23] MEDS: VANCOMYCIN 1500MG in DEXTROSE 5% WATER 250ML IV SCH (23:35)
[2019-02-24] VITALS (12 sets, daily range): BP systolic 119–150; BP diastolic 76–136
[2019-02-24] MEDS: SODIUM CHLORIDE 0.9% 1,000 ML IV SCH ×3 (03:27→17:53)
[2019-02-24] MEDS: INSULIN LISPRO 100 UNITS/ML SUBCUT SCH ×4 (05:45→23:45)
[2019-02-24] MEDS: BLOOD SUGAR DIAGNOSTIC STRIP TEST SCH ×4 (06:33→23:45)
[2019-02-24 07:38] LABS: BASOPHILS % 0.8 % (0.0-2.0); EOSINOPHILS % 6.7 % (0.0-5.0); HEMATOCRIT. 34.7 % (42.0-52.0); HEMOGLOBIN. 11.3 g/dL (14.0-18.0); MEAN CORPUSCULAR HEMOGLOBIN 27.5 pg (28.0-32.0); MEAN CORPUSCULAR VOLUME 84.8 fL (80.0-94.0); MEAN PLATELET VOLUME 8.5 fl (7.4-10.4); MONOCYTES % 7.7 % (2.0-8.0); NEUTROPHILS % 55.8 % (40.0-76.0); PLATELET 240 x1000/uL (130-400); RED CELL DISTRIBUTION WIDTH 15.8 % (11.6-14.6)
[2019-02-24 07:49] LABS: CHLORIDE 107 mEq/L (98-107)
[2019-02-24] MEDS: AMLODIPINE 10MG TABLET PO SCH (08:50)
[2019-02-24] MEDS: VANCOMYCIN 1500MG in DEXTROSE 5% WATER 250ML IV SCH (11:37)
[2019-02-24] MEDS: LEVOFLOXACIN 500MG PREMIX 100 ML IV SCH (17:53)
[2019-02-24] MEDS: ENOXAPARIN 30MG/0.3ML SYR SUBCUT SCH (22:06)
[2019-02-24] MEDS ORDERED: VANCOMYCIN 1250MG in DEXTROSE 5% WATER 250ML IV SCH (23:00)
[2019-02-25] VITALS (12 sets, daily range): BP systolic 124–147; BP diastolic 69–98
[2019-02-25] MEDS: INSULIN LISPRO 100 UNITS/ML SUBCUT SCH ×4 (05:45→23:45)
[2019-02-25] MEDS: BLOOD SUGAR DIAGNOSTIC STRIP TEST SCH ×4 (05:56→23:45)
[2019-02-25] MEDS: ENOXAPARIN 30MG/0.3ML SYR SUBCUT SCH ×2 (09:27→21:21)
[2019-02-25] MEDS: AMLODIPINE 10MG TABLET PO SCH (09:27)
[2019-02-25] MEDS: SODIUM CHLORIDE 0.9% 1,000 ML IV SCH (11:36)
[2019-02-25] MEDS: CEFAZOLIN 1000MG PREMIX 50 ML IV SCH ×2 (14:52→21:22)
[2019-02-26] VITALS (9 sets, daily range): BP systolic 111–140; BP diastolic 77–96
[2019-02-26] MEDS: SODIUM CHLORIDE 0.9% 1,000 ML IV SCH (01:54)
[2019-02-26] MEDS: CEFAZOLIN 1000MG PREMIX 50 ML IV SCH ×2 (05:16→12:25)
[2019-02-26] MEDS: BLOOD SUGAR DIAGNOSTIC STRIP TEST SCH ×2 (05:25→11:28)
[2019-02-26] MEDS: INSULIN LISPRO 100 UNITS/ML SUBCUT SCH ×2 (05:25→11:45)
[2019-02-26 06:48] LABS: CHLORIDE 109 mEq/L (98-107)
[2019-02-26] MEDS: ENOXAPARIN 30MG/0.3ML SYR SUBCUT SCH (08:52)
[2019-02-26] MEDS: AMLODIPINE 10MG TABLET PO SCH (08:53)
== END 2019-02-26 16:20 | disposition home or self-care (01) | DRG 871 ==
LOC: ER 10:17 → 5EST 12:48 → EDBEDREQ 12:49 → ENRESERV 13:45
PROVIDERS: ADMIT Hospitalist; ATTEND Hospitalist
DX: A41.51 Sepsis due to Escherichia coli [E. coli] (principal); J96.01 Acute respiratory failure with hypoxia; N39.0 Urinary tract infection, site not specified; R47.01 Aphasia; I69.351 Hemiplegia and hemiparesis following cerebral infarction affecting right dominant side; E44.1 Mild protein-calorie malnutrition; D64.9 Anemia, unspecified; E11.9 Type 2 diabetes mellitus without complications; I10 Essential (primary) hypertension; R13.10 Dysphagia, unspecified; Z79.899 Other long term (current) drug therapy
CPT/HCPCS: 36415; 36600; 71045; 80048; 80202; 81003; 82375; 82805; 82962; 83605; 84145; 84484; 87077; 87186; 87804; 93005; 93970; 96365; 99291; J0690; J1650; J1956; J2060; J2543; J3370; J7030; J7060

== ENCOUNTER 2019-03-06 15:21 | Inpatient (IN) | payer MEDICARE, OTHER ==
[~2019-03-06] VITALS: Ht 172.7 cm; Wt 90.3 kg
[2019-03-06] MEDS ORDERED: ONDANSETRON HCL 4MG/2ML INJ IV STA (15:52)
[2019-03-06] MEDS ORDERED: SODIUM CHLORIDE 0.9% 1,000 ML IV ONE (15:52)
[2019-03-06 16:36] LABS: HEMATOCRIT. 37.9 % (42.0-52.0); HEMOGLOBIN. 12.4 g/dL (14.0-18.0); MEAN CORPUSCULAR HEMOGLOBIN 27.2 pg (28.0-32.0); MEAN PLATELET VOLUME 8.3 fl (7.4-10.4); PLATELET 295 x1000/uL (130-400); RED BLOOD CELL COUNT 4.57 mill/uL (4.7-6.1); RED CELL DISTRIBUTION WIDTH 15.7 % (11.6-14.6)
[2019-03-06 16:39] LABS: PROTHROMBIN TIME 10.2 sec (9.6-11.0)
[2019-03-06 16:42] LABS: CHLORIDE 107 mEq/L (98-107)
[2019-03-06] MEDS ORDERED: VANCOMYCIN 1 G PREMIX 200 ML IV ONE (16:45)
[2019-03-06] MEDS ORDERED: SODIUM CHLORIDE 0.9% 1000ML BAG (SEPSIS BOLUS) IV ONE (16:45)
[2019-03-06] MEDS ORDERED: PIPERACILLIN/TAZ 3.375G PREMIX 50 ML IV ONE (16:45)
[2019-03-06 17:03] LABS: PLATELET ESTIMATE NORMAL
[2019-03-06 17:57] LABS: CLARITY URINE CLEAR (CLEAR); COLOR URINE YELLOW (YELLOW); KETONES URINE NEGATIVE (NEGATIVE); LEUKOCYTE ESTERASE URINE NEGATIVE (NEGATIVE); NITRITE URINE NEGATIVE (NEGATIVE); OCCULT BLOOD URINE NEGATIVE (NEGATIVE); PROTEIN URINE 1+ (NEGATIVE); UROBILINOGEN URINE 0.2 E.U./dL (0.2-1.0)
[2019-03-06] MEDS ORDERED: NITROGLYCERIN 0.4MG TABLET SL SL PRN (18:30)
[2019-03-06] MEDS ORDERED: DEXTROSE 50% WATER 50ML SYRINGE IV PRN (18:30)
[2019-03-06] MEDS ORDERED: IPRATROPIUM/ALBUTEROL 0.5-3(2.5)MG/3ML NEB NEB PRN (18:30)
[2019-03-06] MEDS ORDERED: DOCUSATE SODIUM 100MG CAPSULE PO PRN (18:30)
[2019-03-06] MEDS ORDERED: ONDANSETRON HCL 4MG/2ML INJ IV PRN (18:30)
[2019-03-06] MEDS ORDERED: MORPHINE SULFATE 2 MG/ML CPJ (NOT FOR IM USE) IV PRN (18:30)
[2019-03-06] MEDS ORDERED: ACETAMINOPHEN 325MG TABLET PO PRN (18:30)
[2019-03-06] MEDS ORDERED: TRAMADOL 50MG TABLET PO PRN (18:30)
[2019-03-06] MEDS: BLOOD SUGAR DIAGNOSTIC STRIP TEST SCH (20:51)
[2019-03-06 21:14] VITALS: BP 157/76
[2019-03-06] MEDS: SODIUM CHLORIDE 0.9% 1,000 ML IV SCH (21:21)
[2019-03-06 21:31] VITALS: BP 157/76
[2019-03-06 22:00] VITALS: BP 127/45
[2019-03-06] MEDS: INSULIN LISPRO 100 UNITS/ML SUBCUT SCH (22:00)
[2019-03-06] MEDS: ASCORBIC ACID 500 MG TABLET PO SCH (22:15)
[2019-03-06] MEDS: FAMOTIDINE 20MG TABLET PO SCH (22:15)
[2019-03-06] MEDS: METOPROLOL TARTRATE 25MG TABLET PO SCH (22:15)
[2019-03-06] MEDS: CEFAZOLIN 1,000 MG in DEXTROSE 5% WATER 50 ML IV SCH (23:42)
[2019-03-07] VITALS (12 sets, daily range): BP systolic 109–152; BP diastolic 64–95
[2019-03-07] MEDS ORDERED: LEVOFLOXACIN 500MG PREMIX 100 ML IV SCH
[2019-03-07] MEDS: METRONIDAZOLE 500 MG PREMIX 100 ML IV SCH ×4 (00:14→23:49)
[2019-03-07] MEDS: METOCLOPRAMIDE HCL 10MG/2ML VIAL IV SCH ×5 (00:20→23:48)
[2019-03-07] MEDS: LEVOFLOXACIN 750MG PREMIX 150 ML IV SCH ×2 (00:43→23:49)
[2019-03-07] MEDS: CEFAZOLIN 1,000 MG in DEXTROSE 5% WATER 50 ML IV SCH ×2 (05:18→13:01)
[2019-03-07] MEDS: BLOOD SUGAR DIAGNOSTIC STRIP TEST SCH ×4 (07:30→21:10)
[2019-03-07] MEDS: INSULIN LISPRO 100 UNITS/ML SUBCUT SCH ×4 (08:00→21:00)
[2019-03-07] MEDS: ENOXAPARIN 40MG/0.4ML SYR SUBCUT SCH (09:13)
[2019-03-07] MEDS: ZINC SULFATE 220 MG ( 50 ) CAPSULE PO SCH (09:14)
[2019-03-07] MEDS: FAMOTIDINE 20MG TABLET PO SCH ×2 (09:14→21:10)
[2019-03-07] MEDS: TAMSULOSIN HCL 0.4MG SR CAPSULE PO SCH (09:14)
[2019-03-07] MEDS: ASCORBIC ACID 500 MG TABLET PO SCH ×2 (09:14→21:10)
[2019-03-07] MEDS: METOPROLOL TARTRATE 25MG TABLET PO SCH ×2 (09:15→21:00)
[2019-03-07] MEDS: CLOPIDOGREL 75MG TABLET PO SCH (09:19)
[2019-03-07] MEDS: DUTASTERIDE 0.5MG CAPSULE PO SCH (09:19)
[2019-03-07] MEDS ORDERED: IPRATROPIUM/ALBUTEROL 0.5-3(2.5)MG/3ML NEB HHN PRN (13:00)
[2019-03-07] MEDS: IPRATROPIUM/ALBUTEROL 0.5-3(2.5)MG/3ML NEB HHN SCH ×2 (15:18→20:22)
[2019-03-07] MEDS: ACETYLCYSTEINE 100MG/ML 10% VIAL 4ML INH SCH (15:18)
[2019-03-07] MEDS: SODIUM CHLORIDE 0.9% 1,000 ML IV SCH ×2 (17:51→21:13)
[2019-03-07] MEDS: GUAIFENESIN 200MG/10ML SUGAR FREE UDC PO PRN (21:10)
[2019-03-07] MEDS: ZOLPIDEM TARTRATE 5MG TABLET PO PRN (21:16)
[2019-03-07] MEDS: CEFAZOLIN 1000MG PREMIX 50 ML IV SCH (21:17)
[2019-03-08] VITALS (7 sets, daily range): BP systolic 69–151; BP diastolic 33–81
[2019-03-08] MEDS: IPRATROPIUM/ALBUTEROL 0.5-3(2.5)MG/3ML NEB HHN SCH ×6 (00:51→20:26)
[2019-03-08] MEDS: ACETYLCYSTEINE 100MG/ML 10% VIAL 4ML INH SCH ×2 (00:51→13:43)
[2019-03-08] MEDS: CEFAZOLIN 1000MG PREMIX 50 ML IV SCH ×3 (06:03→22:42)
[2019-03-08] MEDS: METOCLOPRAMIDE HCL 10MG/2ML VIAL IV SCH ×4 (06:03→22:42)
[2019-03-08] MEDS: BLOOD SUGAR DIAGNOSTIC STRIP TEST SCH ×4 (07:30→20:49)
[2019-03-08] MEDS: INSULIN LISPRO 100 UNITS/ML SUBCUT SCH ×4 (08:00→20:49)
[2019-03-08] MEDS: ENOXAPARIN 40MG/0.4ML SYR SUBCUT SCH (08:52)
[2019-03-08] MEDS: DUTASTERIDE 0.5MG CAPSULE PO SCH (08:52)
[2019-03-08] MEDS: FAMOTIDINE 20MG TABLET PO SCH ×2 (08:52→20:59)
[2019-03-08] MEDS: METOPROLOL TARTRATE 25MG TABLET PO SCH ×2 (08:54→20:50)
[2019-03-08] MEDS: ASCORBIC ACID 500 MG TABLET PO SCH ×2 (08:54→20:49)
[2019-03-08] MEDS: TAMSULOSIN HCL 0.4MG SR CAPSULE PO SCH (08:54)
[2019-03-08] MEDS: ZINC SULFATE 220 MG ( 50 ) CAPSULE PO SCH (08:54)
[2019-03-08] MEDS: METRONIDAZOLE 500 MG PREMIX 100 ML IV SCH ×2 (08:55→17:15)
[2019-03-08] MEDS: CLOPIDOGREL 75MG TABLET PO SCH (09:10)
[2019-03-08] MEDS: SODIUM CHLORIDE 0.9% 1,000 ML IV SCH ×2 (13:10→22:42)
[2019-03-08] MEDS: GUAIFENESIN 200MG/10ML SUGAR FREE UDC PO PRN (20:49)
[2019-03-08] MEDS: ZOLPIDEM TARTRATE 5MG TABLET PO PRN (20:49)
[2019-03-08] MEDS: LEVOFLOXACIN 750MG PREMIX 150 ML IV SCH (22:43)
[2019-03-09] VITALS (13 sets, daily range): BP systolic 97–131; BP diastolic 51–86
[2019-03-09] MEDS: IPRATROPIUM/ALBUTEROL 0.5-3(2.5)MG/3ML NEB HHN SCH ×6 (00:22→20:01)
[2019-03-09] MEDS: ACETYLCYSTEINE 100MG/ML 10% VIAL 4ML INH SCH ×3 (00:22→15:31)
[2019-03-09] MEDS: METRONIDAZOLE 500 MG PREMIX 100 ML IV SCH ×3 (00:39→18:18)
[2019-03-09] MEDS: METOCLOPRAMIDE HCL 10MG/2ML VIAL IV SCH ×4 (05:14→23:53)
[2019-03-09] MEDS: CEFAZOLIN 1000MG PREMIX 50 ML IV SCH ×2 (05:15→13:59)
[2019-03-09 07:31] LABS: HEMATOCRIT. 31.5 % (42.0-52.0); HEMOGLOBIN. 10.3 g/dL (14.0-18.0); MEAN CORPUSCULAR HEMOGLOBIN 27.2 pg (28.0-32.0); MEAN CORPUSCULAR VOLUME 82.8 fL (80.0-94.0); MEAN PLATELET VOLUME 8.4 fl (7.4-10.4); PLATELET 236 x1000/uL (130-400)
[2019-03-09 07:36] LABS: CHLORIDE 108 mEq/L (98-107)
[2019-03-09] MEDS: INSULIN LISPRO 100 UNITS/ML SUBCUT SCH ×3 (08:00→18:00)
[2019-03-09] MEDS: BLOOD SUGAR DIAGNOSTIC STRIP TEST SCH ×4 (08:07→23:54)
[2019-03-09] MEDS: DUTASTERIDE 0.5MG CAPSULE PO SCH (08:08)
[2019-03-09] MEDS: METOPROLOL TARTRATE 25MG TABLET PO SCH ×2 (08:08→21:00)
[2019-03-09] MEDS: ENOXAPARIN 40MG/0.4ML SYR SUBCUT SCH (08:08)
[2019-03-09] MEDS: ASCORBIC ACID 500 MG TABLET PO SCH ×2 (08:08→21:55)
[2019-03-09] MEDS: ZINC SULFATE 220 MG ( 50 ) CAPSULE PO SCH (08:09)
[2019-03-09] MEDS: CLOPIDOGREL 75MG TABLET PO SCH (08:09)
[2019-03-09] MEDS: TAMSULOSIN HCL 0.4MG SR CAPSULE PO SCH (08:09)
[2019-03-09] MEDS: FAMOTIDINE 20MG TABLET PO SCH ×2 (08:09→21:55)
[2019-03-09] MEDS ORDERED: VANCOMYCIN 1 G PREMIX 200 ML IV SCH (12:00)
[2019-03-09] MEDS ORDERED: VANCOMYCIN 1,000 MG in DEXT 5% WATER 250 ML IV SCH (12:00)
[2019-03-09] MEDS: SODIUM CHLORIDE 0.9% 1,000 ML IV SCH (13:00)
[2019-03-09 19:39] LABS: PLATELET ESTIMATE NORMAL
[2019-03-09] MEDS: VANCOMYCIN 1250MG in DEXTROSE 5% WATER 250ML IV SCH (22:21)
[2019-03-09] MEDS: LEVOFLOXACIN 750MG PREMIX 150 ML IV SCH (23:53)
[2019-03-10] VITALS (12 sets, daily range): BP systolic 105–142; BP diastolic 41–90
[2019-03-10] MEDS: IPRATROPIUM/ALBUTEROL 0.5-3(2.5)MG/3ML NEB HHN SCH ×6 (00:12→20:10)
[2019-03-10] MEDS: ACETYLCYSTEINE 100MG/ML 10% VIAL 4ML INH SCH ×3 (00:13→17:22)
[2019-03-10] MEDS: METRONIDAZOLE 500 MG PREMIX 100 ML IV SCH ×3 (01:42→17:26)
[2019-03-10] MEDS: BLOOD SUGAR DIAGNOSTIC STRIP TEST SCH ×3 (05:20→17:26)
[2019-03-10] MEDS: METOCLOPRAMIDE HCL 10MG/2ML VIAL IV SCH ×3 (05:20→17:26)
[2019-03-10] MEDS: INSULIN LISPRO 100 UNITS/ML SUBCUT SCH ×4 (05:25→18:00)
[2019-03-10] MEDS: SODIUM CHLORIDE 0.9% 1,000 ML IV SCH ×2 (07:59→16:18)
[2019-03-10] MEDS: ZINC SULFATE 220 MG ( 50 ) CAPSULE PO SCH (08:47)
[2019-03-10] MEDS: FAMOTIDINE 20MG TABLET PO SCH ×2 (08:47→20:33)
[2019-03-10] MEDS: ASCORBIC ACID 500 MG TABLET PO SCH ×2 (08:47→20:32)
[2019-03-10] MEDS: TAMSULOSIN HCL 0.4MG SR CAPSULE PO SCH (08:50)
[2019-03-10] MEDS: ENOXAPARIN 40MG/0.4ML SYR SUBCUT SCH (09:00)
[2019-03-10] MEDS: CLOPIDOGREL 75MG TABLET PO SCH (09:00)
[2019-03-10] MEDS: DUTASTERIDE 0.5MG CAPSULE PO SCH (09:47)
[2019-03-10] MEDS: METOPROLOL TARTRATE 25MG TABLET PO SCH ×2 (09:49→20:33)
[2019-03-10] MEDS: VANCOMYCIN 1250MG in DEXTROSE 5% WATER 250ML IV SCH ×2 (11:05→20:33)
[2019-03-11] VITALS (12 sets, daily range): BP systolic 104–133; BP diastolic 69–103
[2019-03-11] MEDS: METOCLOPRAMIDE HCL 10MG/2ML VIAL IV SCH ×4 (00:06→17:51)
[2019-03-11] MEDS: LEVOFLOXACIN 750MG PREMIX 150 ML IV SCH (00:07)
[2019-03-11] MEDS: IPRATROPIUM/ALBUTEROL 0.5-3(2.5)MG/3ML NEB HHN SCH ×6 (00:19→20:56)
[2019-03-11] MEDS: ACETYLCYSTEINE 100MG/ML 10% VIAL 4ML INH SCH ×3 (00:19→16:10)
[2019-03-11] MEDS: METRONIDAZOLE 500 MG PREMIX 100 ML IV SCH ×3 (01:52→17:51)
[2019-03-11] MEDS: SODIUM CHLORIDE 0.9% 1,000 ML IV SCH (05:41)
[2019-03-11] MEDS: BLOOD SUGAR DIAGNOSTIC STRIP TEST SCH ×4 (05:41→17:50)
[2019-03-11] MEDS: INSULIN LISPRO 100 UNITS/ML SUBCUT SCH ×4 (06:00→17:50)
[2019-03-11 06:23] LABS: HEMATOCRIT. 33.5 % (42.0-52.0); LYMPHOCYTES % 25.9 % (20.0-50.0); MEAN CORPUSCULAR HEMOGLOBIN 27.2 pg (28.0-32.0); MEAN CORPUSCULAR VOLUME 82.7 fL (80.0-94.0); MEAN PLATELET VOLUME 8.2 fl (7.4-10.4); MONOCYTES % 7.6 % (2.0-8.0); NEUTROPHILS % 60.5 % (40.0-76.0); PLATELET 237 x1000/uL (130-400); RED BLOOD CELL COUNT 4.06 mill/uL (4.7-6.1); RED CELL DISTRIBUTION WIDTH 15.9 % (11.6-14.6)
[2019-03-11 06:27] LABS: CHLORIDE 108 mEq/L (98-107)
[2019-03-11] MEDS: ASCORBIC ACID 500 MG TABLET PO SCH ×2 (09:02→21:29)
[2019-03-11] MEDS: CLOPIDOGREL 75MG TABLET PO SCH (09:02)
[2019-03-11] MEDS: VANCOMYCIN 1250MG in DEXTROSE 5% WATER 250ML IV SCH ×2 (09:02→21:29)
[2019-03-11] MEDS: ZINC SULFATE 220 MG ( 50 ) CAPSULE PO SCH (09:02)
[2019-03-11] MEDS: FAMOTIDINE 20MG TABLET PO SCH ×2 (09:02→21:29)
[2019-03-11] MEDS: ENOXAPARIN 40MG/0.4ML SYR SUBCUT SCH (09:03)
[2019-03-11] MEDS: METOPROLOL TARTRATE 25MG TABLET PO SCH ×2 (09:03→21:44)
[2019-03-11] MEDS: TAMSULOSIN HCL 0.4MG SR CAPSULE PO SCH (09:03)
[2019-03-11] MEDS: DUTASTERIDE 0.5MG CAPSULE PO SCH (09:03)
[2019-03-12] VITALS (12 sets, daily range): BP systolic 99–158; BP diastolic 65–91
[2019-03-12] MEDS: METOCLOPRAMIDE HCL 10MG/2ML VIAL IV SCH ×4 (00:23→18:32)
[2019-03-12] MEDS: LEVOFLOXACIN 750MG PREMIX 150 ML IV SCH (00:23)
[2019-03-12] MEDS: METRONIDAZOLE 500 MG PREMIX 100 ML IV SCH ×3 (00:57→18:37)
[2019-03-12] MEDS: IPRATROPIUM/ALBUTEROL 0.5-3(2.5)MG/3ML NEB HHN SCH ×6 (01:01→20:24)
[2019-03-12] MEDS: ACETYLCYSTEINE 100MG/ML 10% VIAL 4ML INH SCH ×2 (01:01→09:11)
[2019-03-12] MEDS: BLOOD SUGAR DIAGNOSTIC STRIP TEST SCH ×4 (06:00→18:32)
[2019-03-12] MEDS: INSULIN LISPRO 100 UNITS/ML SUBCUT SCH ×4 (06:00→18:00)
[2019-03-12] MEDS: TAMSULOSIN HCL 0.4MG SR CAPSULE PO SCH (08:25)
[2019-03-12] MEDS: DUTASTERIDE 0.5MG CAPSULE PO SCH (08:25)
[2019-03-12] MEDS: FAMOTIDINE 20MG TABLET PO SCH ×2 (08:25→21:12)
[2019-03-12] MEDS: METOPROLOL TARTRATE 25MG TABLET PO SCH ×2 (08:25→21:11)
[2019-03-12] MEDS: CLOPIDOGREL 75MG TABLET PO SCH (08:25)
[2019-03-12] MEDS: ZINC SULFATE 220 MG ( 50 ) CAPSULE PO SCH (08:25)
[2019-03-12] MEDS: ASCORBIC ACID 500 MG TABLET PO SCH ×2 (08:25→21:12)
[2019-03-12] MEDS: ENOXAPARIN 40MG/0.4ML SYR SUBCUT SCH (08:26)
[2019-03-12] MEDS: VANCOMYCIN 1250MG in DEXTROSE 5% WATER 250ML IV SCH ×2 (18:31→21:11)
[2019-03-13] VITALS (11 sets, daily range): BP systolic 115–141; BP diastolic 72–96
[2019-03-13] MEDS: METOCLOPRAMIDE HCL 10MG/2ML VIAL IV SCH ×4 (00:14→17:09)
[2019-03-13] MEDS: LEVOFLOXACIN 750MG PREMIX 150 ML IV SCH (00:14)
[2019-03-13] MEDS: ACETYLCYSTEINE 100MG/ML 10% VIAL 4ML INH SCH (00:49)
[2019-03-13] MEDS: IPRATROPIUM/ALBUTEROL 0.5-3(2.5)MG/3ML NEB HHN SCH ×6 (00:53→21:14)
[2019-03-13] MEDS: METRONIDAZOLE 500 MG PREMIX 100 ML IV SCH ×3 (01:26→18:28)
[2019-03-13] MEDS: BLOOD SUGAR DIAGNOSTIC STRIP TEST SCH ×4 (05:38→17:24)
[2019-03-13] MEDS: INSULIN LISPRO 100 UNITS/ML SUBCUT SCH ×4 (05:38→17:25)
[2019-03-13] MEDS: CLOPIDOGREL 75MG TABLET PO SCH (09:37)
[2019-03-13] MEDS: ZINC SULFATE 220 MG ( 50 ) CAPSULE PO SCH (09:37)
[2019-03-13] MEDS: ASCORBIC ACID 500 MG TABLET PO SCH (09:38)
[2019-03-13] MEDS: DUTASTERIDE 0.5MG CAPSULE PO SCH (09:38)
[2019-03-13] MEDS: TAMSULOSIN HCL 0.4MG SR CAPSULE PO SCH (09:38)
[2019-03-13] MEDS: METOPROLOL TARTRATE 25MG TABLET PO SCH ×2 (09:38→21:35)
[2019-03-13] MEDS: ENOXAPARIN 40MG/0.4ML SYR SUBCUT SCH (09:40)
[2019-03-13] MEDS: VANCOMYCIN 1250MG in DEXTROSE 5% WATER 250ML IV SCH ×2 (09:50→21:34)
[2019-03-13] MEDS: FAMOTIDINE 20MG TABLET PO SCH ×2 (12:05→21:35)
[2019-03-14] VITALS (13 sets, daily range): BP systolic 119–140; BP diastolic 64–98
[2019-03-14] MEDS: IPRATROPIUM/ALBUTEROL 0.5-3(2.5)MG/3ML NEB HHN SCH ×6 (01:08→20:59)
[2019-03-14] MEDS: METRONIDAZOLE 500 MG PREMIX 100 ML IV SCH ×3 (01:37→17:42)
[2019-03-14] MEDS: METOCLOPRAMIDE HCL 10MG/2ML VIAL IV SCH ×3 (01:38→17:50)
[2019-03-14] MEDS: LEVOFLOXACIN 750MG PREMIX 150 ML IV SCH (01:38)
[2019-03-14] MEDS: INSULIN LISPRO 100 UNITS/ML SUBCUT SCH ×4 (01:45→17:46)
[2019-03-14] MEDS: BLOOD SUGAR DIAGNOSTIC STRIP TEST SCH ×4 (06:34→17:45)
[2019-03-14] MEDS: DUTASTERIDE 0.5MG CAPSULE PO SCH (08:34)
[2019-03-14] MEDS: TAMSULOSIN HCL 0.4MG SR CAPSULE PO SCH (08:35)
[2019-03-14] MEDS: CLOPIDOGREL 75MG TABLET PO SCH (08:35)
[2019-03-14] MEDS: ENOXAPARIN 40MG/0.4ML SYR SUBCUT SCH (08:36)
[2019-03-14] MEDS: METOPROLOL TARTRATE 25MG TABLET PO SCH ×2 (08:36→21:49)
[2019-03-14] MEDS: FAMOTIDINE 20MG TABLET PO SCH ×2 (08:36→21:49)
[2019-03-14] MEDS: VANCOMYCIN 1250MG in DEXTROSE 5% WATER 250ML IV SCH ×2 (08:54→21:49)
[2019-03-15] VITALS: BP 116/82
[2019-03-15] MEDS: INSULIN LISPRO 100 UNITS/ML SUBCUT SCH
[2019-03-15] MEDS: METOCLOPRAMIDE HCL 10MG/2ML VIAL IV SCH (00:01)
[2019-03-15] MEDS: BLOOD SUGAR DIAGNOSTIC STRIP TEST SCH (00:01)
[2019-03-15] MEDS: IPRATROPIUM/ALBUTEROL 0.5-3(2.5)MG/3ML NEB HHN SCH (00:34)
== END 2019-03-15 01:07 | DRG 871 ==
LOC: ER 15:21 → 5EST 17:47 → EDBEDREQ 17:50 → EDBEDREQTM 17:50 → ENRESERV 20:02
PROVIDERS: ADMIT Internal Medicine; ATTEND Internal Medicine
DX: A41.01 Sepsis due to Methicillin susceptible Staphylococcus aureus (principal); J96.00 Acute respiratory failure, unspecified whether with hypoxia or hypercapnia; J69.0 Pneumonitis due to inhalation of food and vomit; G92 Toxic encephalopathy; E44.0 Moderate protein-calorie malnutrition; N12 Tubulo-interstitial nephritis, not specified as acute or chronic; I69.351 Hemiplegia and hemiparesis following cerebral infarction affecting right dominant side; R33.8 Other retention of urine; N40.1 Benign prostatic hyperplasia with lower urinary tract symptoms; A41.02 Sepsis due to Methicillin resistant Staphylococcus aureus; R65.20 Severe sepsis without septic shock; I10 Essential (primary) hypertension; D63.8 Anemia in other chronic diseases classified elsewhere; E11.9 Type 2 diabetes mellitus without complications; E78.5 Hyperlipidemia, unspecified; E83.51 Hypocalcemia; Z79.02 Long term (current) use of antithrombotics/antiplatelets; Z79.4 Long term (current) use of insulin; Z93.1 Gastrostomy status
CPT/HCPCS: 36415; 71045; 80048; 80061; 80202; 81003; 82962; 83036; 83605; 83880; 84145; 84484; 87077; 93005; 93970; 94640; 94667; 97161; 99285; A6261; J0690; J1650; J1815; J1956; J2405; J2543; J2765; J3370; J3490; J7030; J7060; J7608; J7620; A4315

== ENCOUNTER 2019-12-04 11:38 | Inpatient (IN) | payer MEDICARE, OTHER ==
[~2019-12-04] VITALS: Ht 170.2 cm; Wt 101.8 kg
[2019-12-04] VITALS (68 sets, daily range): BP systolic 81–147; BP diastolic 55–97
[2019-12-04] MEDS ORDERED: SODIUM CHLORIDE 0.9% 1,000 ML IV ONE (11:42)
[2019-12-04] MEDS ORDERED: ONDANSETRON HCL 4MG/2ML INJ IV ONE (11:45)
[2019-12-04 12:04] LABS: BASOPHILS % 0.5 % (0.0-2.0); HEMOGLOBIN. 14.5 g/dL (14.0-18.0); LYMPHOCYTES % 36.5 % (20.0-50.0); MEAN CORPUSCULAR HEMOGLOBIN 31.5 pg (28.0-32.0); MEAN CORPUSCULAR VOLUME 91.3 fL (80.0-94.0); MEAN PLATELET VOLUME 9.2 fl (7.4-10.4); PLATELET 170 x1000/uL (130-400); RED CELL DISTRIBUTION WIDTH 13.8 % (11.6-14.6)
[2019-12-04 12:13] LABS: CHLORIDE 110 mEq/L (98-107)
[2019-12-04 12:14] LABS: PROTHROMBIN TIME 10.6 sec (9.6-11.0)
[2019-12-04] MEDS ORDERED: MIDAZOLAM HCL 50 MG in DEXTROSE 5% WATER 40 ML IV ONE (12:15)
[2019-12-04] MEDS ORDERED: PROPOFOL 10MG/ML 100ML 100 ML IV ONE (12:15)
[2019-12-04] MEDS ORDERED: LEVETIRACETAM 500MG PREMIX 100 ML IV ONE (12:15)
[2019-12-04] MEDS ORDERED: SUCCINYLCHOLINE CHLORIDE 200MG/10ML IV ONE (12:15)
[2019-12-04] MEDS ORDERED: ETOMIDATE 2MG/ML 10ML VIAL IV ONE (12:15)
[2019-12-04] MEDS ORDERED: DEXAMETHASONE 10 MG/ML VIAL IV ONE (12:15)
[2019-12-04 12:18] LABS: ETHANOL BLOOD < 10 mg/dL
[2019-12-04 12:21] LABS: LDL CHOLESTEROL 34 mg/dL (5-100)
[2019-12-04 12:22] LABS: CREATINE KINASE 74 IU/L (39-308)
[2019-12-04] MEDS ORDERED: MIDAZOLAM HCL 100 MG in DEXT 5% WATER 80 ML IV ONE (12:30)
[2019-12-04] MEDS ORDERED: LABETALOL 5MG/ML SYR 20 MG/4 ML SYRINGE IV ONE ×2 (12:45→12:48)
[2019-12-04] MEDS ORDERED: NICARDIPINE 40MG/200ML PREMIX 200 ML IV PRN (12:45)
[2019-12-04] MEDS ORDERED: NICARDIPINE 40MG/200ML PREMIX 200 ML IV ONE (12:48)
[2019-12-04] MEDS ORDERED: SODIUM CHLORIDE 0.9% 1,000 ML IV SCH (13:16)
[2019-12-04] MEDS ORDERED: ONDANSETRON HCL 4MG/2ML INJ IV PRN (13:30)
[2019-12-04] MEDS ORDERED: ACETAMINOPHEN 650MG SUPP PR PRN (13:30)
[2019-12-04] MEDS ORDERED: DIPHENHYDRAMINE 50MG/ML VIAL IV PRN (13:30)
[2019-12-04] MEDS ORDERED: MANNITOL 12.5G (25%) VIAL 50ML IV ONE (13:30)
[2019-12-04 13:47] LABS: BG BASE EXCESS 1.8 mmol/L (-2.0-2.0); BG CARBOXYHEMOGLOBIN 0.4 % (0.5-1.5); BG DEOXYHEMOGLOBIN 0.8 % (0.0-5.0); BG FRACTION INSPIRED OXYGEN 100; BG HCO3 ACT 27.6 mmol/L (22.0-26.0); BG METHEMOGLOBIN 0.4 % (0.0-1.5); BG OXYGEN SATURATION 99.2 % (92.0-98.5); BG OXYHEMOGLOBIN 98.4 % (94.0-97.0); BG PCO2 47.1 mmHg (35.0-45.0); BG PH 7.385 (7.350-7.450); BG PO2 200.3 mmHg (75.0-100.0); BG SAMPLE SITE LEFT BRACHIAL; BG TIDAL VOLUME(mL) 500 mL; BG TOTAL HEMOGLOBIN 14.8 g/dL (12.0-18.0); BG VENT MODE VENT - A/C; BG VENT RATE 22 set
[2019-12-04 14:05] LABS: D-DIMER 1.67 mg/L FEU (<0.50); PARTIAL THROMBOPLASTIN TIME 23.2 sec (23.4-31.0)
[2019-12-04 14:06] LABS: PHOSPHORUS 3.6 mg/dL (2.5-4.9)
[2019-12-04] MEDS ORDERED: MORPHINE SULFATE 10 MG/ML CPJ ONE (14:27)
[2019-12-04] MEDS ORDERED: VECURONIUM BROMIDE 10 MG/VIAL IV ONE (14:30)
[2019-12-04] MEDS ORDERED: MIDAZOLAM HCL 100 MG in DEXT 5% WATER 80 ML IV PRN (15:15)
[2019-12-04] MEDS ORDERED: NICARDIPINE 100 MG in SODIUM CHLORIDE 0.9% 60 ML IV PRN (15:15)
[2019-12-04] MEDS ORDERED: MORPHINE SULFATE 10 MG/ML CPJ IV ONE (15:15)
[2019-12-04] MEDS ORDERED: MORPHINE SULFATE 4 MG/ML CPJ (NOT FOR IM USE) IV PRN (15:45)
[2019-12-04] MEDS: PROPOFOL 10MG/ML 100ML 100 ML IV PRN ×2 (15:51→19:51)
[2019-12-04] MEDS ORDERED: BLOOD SUGAR DIAGNOSTIC STRIP TEST SCH (17:15)
[2019-12-04] MEDS ORDERED: INSULIN LISPRO 100 UNITS/ML SUBCUT SCH (17:15)
[2019-12-04] MEDS ORDERED: DEXTROSE 50% WATER 50ML SYRINGE IV PRN (17:15)
[2019-12-04] MEDS: DEXT 5%/LACTATED RINGERS 1,000 ML IV SCH (17:45)
[2019-12-04] MEDS: DEXAMETHASONE 4MG/ML 1ML VIAL IV SCH ×2 (17:56→23:14)
[2019-12-04 19:20] LABS: CLARITY URINE CLEAR (CLEAR); COLOR URINE YELLOW (YELLOW); KETONES URINE NEGATIVE (NEGATIVE); LEUKOCYTE ESTERASE URINE NEGATIVE (NEGATIVE); NITRITE URINE NEGATIVE (NEGATIVE); OCCULT BLOOD URINE NEGATIVE (NEGATIVE); PROTEIN URINE 1+ (NEGATIVE); SPECIFIC GRAVITY URINE 1.016 (1.005-1.030); UROBILINOGEN URINE 0.2 E.U./dL (0.2-1.0)
[2019-12-04 19:43] LABS: *BARBITURATES SCREEN URINE NEGATIVE (NEGATIVE); *BENZODIAZEPINES SCREEN URINE PRESUMTIVE POSITIVE (NEGATIVE); *COCAINE SCREEN URINE NEGATIVE (NEGATIVE); CANNABINOID URINE SCREEN NEGATIVE (NEGATIVE)
[2019-12-04 19:44] LABS: *AMPHETAMINES SCREEN URINE NEGATIVE (NEGATIVE); METHADONE URINE SCREEN NEGATIVE (NEGATIVE); OPIATES URINE SCREEN PRESUMTIVE POSITIVE (NEGATIVE); PHENCYCLIDINE URINE SCREEN NEGATIVE (NEGATIVE)
[2019-12-04] MEDS: LEVETIRACETAM 500MG PREMIX 100 ML IV SCH (20:18)
[2019-12-04] MEDS: CEFAZOLIN 1000MG PREMIX 50 ML IV SCH (21:04)
[2019-12-04] MEDS ORDERED: CEFAZOLIN SODIUM 1000MG/VIAL IV SCH (22:00)
[2019-12-04] MEDS: BLOOD SUGAR DIAGNOSTIC STRIP TEST SCH (23:15)
[2019-12-04] MEDS: INSULIN LISPRO 100 UNITS/ML SUBCUT SCH (23:15)
[2019-12-05] VITALS (93 sets, daily range): BP systolic 52–125; BP diastolic 30–80
[2019-12-05] MEDS: CEFAZOLIN 1000MG PREMIX 50 ML IV SCH ×2 (05:12→13:43)
[2019-12-05] MEDS: DEXAMETHASONE 4MG/ML 1ML VIAL IV SCH ×4 (05:12→23:17)
[2019-12-05] MEDS: BLOOD SUGAR DIAGNOSTIC STRIP TEST SCH ×4 (05:12→23:17)
[2019-12-05] MEDS: INSULIN LISPRO 100 UNITS/ML SUBCUT SCH ×3 (05:13→23:17)
[2019-12-05 05:52] LABS: BASOPHILS % 0.3 % (0.0-2.0); EOSINOPHILS % 1.1 % (0.0-5.0); HEMOGLOBIN. 14.3 g/dL (14.0-18.0); LYMPHOCYTES % 7.2 % (20.0-50.0); MEAN CORPUSCULAR HEMOGLOBIN 31.4 pg (28.0-32.0); MEAN CORPUSCULAR VOLUME 92.2 fL (80.0-94.0); MONOCYTES % 4.9 % (2.0-8.0); NEUTROPHILS % 86.5 % (40.0-76.0); PLATELET 271 x1000/uL (130-400); RED BLOOD CELL COUNT 4.56 mill/uL (4.7-6.1); RED CELL DISTRIBUTION WIDTH 14.3 % (11.6-14.6)
[2019-12-05 06:01] LABS: CHLORIDE 107 mEq/L (98-107)
[2019-12-05 06:11] LABS: HDL CHOLESTEROL 31 mg/dL (40-59)
[2019-12-05 06:12] LABS: LDL CHOLESTEROL 41 mg/dL (5-100)
[2019-12-05 07:34] LABS: BG BASE EXCESS 0.4 mmol/L (-2.0-2.0); BG DEOXYHEMOGLOBIN 7.6 % (0.0-5.0); BG FRACTION INSPIRED OXYGEN 50; BG HCO3 ACT 24.6 mmol/L (22.0-26.0); BG METHEMOGLOBIN 0.3 % (0.0-1.5); BG OXYGEN SATURATION 92.3 % (92.0-98.5); BG OXYHEMOGLOBIN 91.1 % (94.0-97.0); BG PCO2 38.2 mmHg (35.0-45.0); BG PH 7.426 (7.350-7.450); BG PO2 62.8 mmHg (75.0-100.0); BG SAMPLE SITE RIGHT BRACHIAL; BG TIDAL VOLUME(mL) 500 mL; BG TOTAL HEMOGLOBIN 14.9 g/dL (12.0-18.0); BG VENT MODE VENT - A/C; BG VENT RATE 22 set
[2019-12-05] MEDS: PROPOFOL 10MG/ML 100ML 100 ML IV PRN (08:00)
[2019-12-05] MEDS ORDERED: DEXT 5%/0.45% NACL 500ML 500 ML IV ONE (08:30)
[2019-12-05] MEDS ORDERED: SODIUM CHLORIDE 0.9% 500 ML IV ONE (09:15)
[2019-12-05] MEDS ORDERED: FENTANYL CITRATE/PF 1,000 MCG in SODIUM CHLORIDE 0.9% 80 ML IV PRN (09:15)
[2019-12-05] MEDS: LEVETIRACETAM 500MG PREMIX 100 ML IV SCH ×2 (10:21→21:20)
[2019-12-05] MEDS: PHENYLEPHRINE 40 MG in DEXT 5% WATER 246 ML IV PRN ×2 (10:25→16:22)
[2019-12-05] MEDS: PIPERACILLIN/TAZOBACTAM 3.375 G in DEXT 5% WATER 100 ML IV SCH ×3 (12:00→23:16)
[2019-12-05] MEDS ORDERED: INSULIN LISPRO 100 UNITS/ML SUBCUT SCH ×2 (12:00→17:00)
[2019-12-05] MEDS: DEXT 5%/LACTATED RINGERS 1,000 ML IV SCH (13:10)
[2019-12-05] MEDS ORDERED: DEXTROSE 50% WATER 50ML SYRINGE IV PRN ×2 (15:15→15:45)
[2019-12-05] MEDS ORDERED: BLOOD SUGAR DIAGNOSTIC STRIP TEST SCH (16:30)
[2019-12-05] MEDS ORDERED: INSULIN LISPRO 100 UNITS/ML SUBCUT ONE (18:15)
[2019-12-05] MEDS ORDERED: SODIUM CHLORIDE 0.9% 1,000 ML IV SCH (18:15)
[2019-12-05] MEDS: PHENYLEPHRINE 80 MG in SODIUM CHLORIDE 0.9% 492 ML IV PRN (21:19)
[2019-12-05] MEDS: INSULIN GLARGINE UD 100 UNITS/ML SYR SUBCUT SCH (21:20)
[2019-12-06] VITALS (91 sets, daily range): BP systolic 70–122; BP diastolic 41–78
[2019-12-06] MEDS: BLOOD SUGAR DIAGNOSTIC STRIP TEST SCH ×4 (05:29→23:16)
[2019-12-06] MEDS: INSULIN LISPRO 100 UNITS/ML SUBCUT SCH ×4 (05:29→23:16)
[2019-12-06] MEDS: DEXAMETHASONE 4MG/ML 1ML VIAL IV SCH ×4 (05:29→23:16)
[2019-12-06] MEDS: PIPERACILLIN/TAZOBACTAM 3.375 G in DEXT 5% WATER 100 ML IV SCH ×4 (05:29→23:16)
[2019-12-06 05:48] LABS: BASOPHILS % 0.1 % (0.0-2.0); HEMATOCRIT. 40.9 % (42.0-52.0); HEMOGLOBIN. 13.6 g/dL (14.0-18.0); LYMPHOCYTES % 7.9 % (20.0-50.0); MEAN CORPUSCULAR HEMOGLOBIN 30.6 pg (28.0-32.0); MEAN CORPUSCULAR VOLUME 92.2 fL (80.0-94.0); MEAN PLATELET VOLUME 9.4 fl (7.4-10.4); MONOCYTES % 6.1 % (2.0-8.0); NEUTROPHILS % 85.9 % (40.0-76.0); PLATELET 314 x1000/uL (130-400); RED BLOOD CELL COUNT 4.43 mill/uL (4.7-6.1); RED CELL DISTRIBUTION WIDTH 14.4 % (11.6-14.6)
[2019-12-06 05:49] LABS: CHLORIDE 126 mEq/L (98-107)
[2019-12-06] MEDS: PHENYLEPHRINE 80 MG in SODIUM CHLORIDE 0.9% 492 ML IV PRN ×2 (08:03→22:57)
[2019-12-06] MEDS: LEVETIRACETAM 500MG PREMIX 100 ML IV SCH ×2 (08:04→21:19)
[2019-12-06] MEDS: SODIUM CHLORIDE 0.45% 1,000 ML IV SCH (12:37)
[2019-12-06] MEDS: INSULIN GLARGINE UD 100 UNITS/ML SYR SUBCUT SCH (21:22)
[2019-12-07] VITALS (99 sets, daily range): BP systolic 55–188; BP diastolic 29–118
[2019-12-07] MEDS: SODIUM CHLORIDE 0.45% 1,000 ML IV SCH (03:53)
[2019-12-07] MEDS: DEXAMETHASONE 4MG/ML 1ML VIAL IV SCH ×4 (05:27→22:57)
[2019-12-07] MEDS: BLOOD SUGAR DIAGNOSTIC STRIP TEST SCH ×4 (05:28→23:59)
[2019-12-07] MEDS: PIPERACILLIN/TAZOBACTAM 3.375 G in DEXT 5% WATER 100 ML IV SCH ×4 (05:28→22:57)
[2019-12-07 05:29] LABS: BASOPHILS % 0.1 % (0.0-2.0); HEMATOCRIT. 39.3 % (42.0-52.0); HEMOGLOBIN. 12.8 g/dL (14.0-18.0); LYMPHOCYTES % 8.1 % (20.0-50.0); MEAN CORPUSCULAR HEMOGLOBIN 30.4 pg (28.0-32.0); MEAN CORPUSCULAR VOLUME 93.2 fL (80.0-94.0); MEAN PLATELET VOLUME 9.5 fl (7.4-10.4); MONOCYTES % 7.6 % (2.0-8.0); NEUTROPHILS % 84.2 % (40.0-76.0); PLATELET 259 x1000/uL (130-400); RED BLOOD CELL COUNT 4.22 mill/uL (4.7-6.1); RED CELL DISTRIBUTION WIDTH 14.6 % (11.6-14.6)
[2019-12-07] MEDS: INSULIN LISPRO 100 UNITS/ML SUBCUT SCH ×4 (05:30→23:58)
[2019-12-07 05:34] LABS: CHLORIDE 137 mEq/L (98-107)
[2019-12-07] MEDS: DEXTROSE 5% WATER 1,000 ML IV SCH ×3 (06:35→23:56)
[2019-12-07] MEDS: LEVETIRACETAM 500MG PREMIX 100 ML IV SCH ×2 (09:29→20:09)
[2019-12-07 09:57] LABS: BG CARBOXYHEMOGLOBIN 0.2 % (0.5-1.5); BG DEOXYHEMOGLOBIN 12.5 % (0.0-5.0); BG FRACTION INSPIRED OXYGEN 60; BG HCO3 ACT 18.8 mmol/L (22.0-26.0); BG OXYGEN SATURATION 87.3 % (92.0-98.5); BG OXYHEMOGLOBIN 86.3 % (94.0-97.0); BG PCO2 34.7 mmHg (35.0-45.0); BG PH 7.351 (7.350-7.450); BG PO2 56.9 mmHg (75.0-100.0); BG SAMPLE SITE LEFT RADIAL; BG TIDAL VOLUME(mL) 500 mL; BG TOTAL HEMOGLOBIN 13.6 g/dL (12.0-18.0); BG VENT MODE VENT - A/C; BG VENT RATE 22 set
[2019-12-07] MEDS: DESMOPRESSIN ACETATE IVPB 1 MCG in SODIUM CHLORIDE 0.9% 50 ML IV SCH ×2 (10:43→20:09)
[2019-12-07] MEDS: INSULIN GLARGINE UD 100 UNITS/ML SYR SUBCUT SCH ×2 (12:32→22:07)
[2019-12-07] MEDS: PHENYLEPHRINE 80 MG in SODIUM CHLORIDE 0.9% 492 ML IV PRN ×2 (12:35→22:28)
[2019-12-07 18:25] LABS: BG BASE EXCESS -5.9 mmol/L (-2.0-2.0); BG CARBOXYHEMOGLOBIN 0.1 % (0.5-1.5); BG FRACTION INSPIRED OXYGEN 100; BG HCO3 ACT 19.1 mmol/L (22.0-26.0); BG METHEMOGLOBIN 0.3 % (0.0-1.5); BG OXYHEMOGLOBIN 89.6 % (94.0-97.0); BG PCO2 36.1 mmHg (35.0-45.0); BG PH 7.341 (7.350-7.450); BG SAMPLE SITE A-LINE; BG TIDAL VOLUME(mL) 500 mL; BG TOTAL HEMOGLOBIN 13.9 g/dL (12.0-18.0); BG VENT MODE VENT - A/C; BG VENT RATE 22 set
[2019-12-07 20:27] LABS: HEMATOCRIT. 41.4 % (42.0-52.0); HEMOGLOBIN. 13.6 g/dL (14.0-18.0); LYMPHOCYTES % 10.5 % (20.0-50.0); MEAN CORPUSCULAR HEMOGLOBIN 30.8 pg (28.0-32.0); MEAN CORPUSCULAR VOLUME 94.1 fL (80.0-94.0); MEAN PLATELET VOLUME 9.7 fl (7.4-10.4); MONOCYTES % 6.5 % (2.0-8.0); PLATELET 213 x1000/uL (130-400); RED CELL DISTRIBUTION WIDTH 15.2 % (11.6-14.6)
[2019-12-07 20:31] LABS: CHLORIDE 136 mEq/L (98-107)
[2019-12-07 20:38] LABS: AMYLASE 241 IU/L (25-115); PHOSPHORUS 3.8 mg/dL (2.5-4.9)
[2019-12-07] MEDS ORDERED: POTASSIUM CHLORIDE 20MEQ/PACKET PO NR (21:33)
[2019-12-07] MEDS ORDERED: NOREPINEPHRINE 32 MG in DEXT 5% WATER 468 ML IV PRN (22:00)
[2019-12-07] MEDS ORDERED: POTASSIUM CHLORIDE INJ 40 MEQ in DEXT 5% WATER 250 ML IV NR (22:30)
[2019-12-07] MEDS ORDERED: VASOPRESSIN 10 UNIT in SODIUM CHLORIDE 0.9% 99.5 ML IV PRN (22:45)
[2019-12-07 23:05] LABS: PARTIAL THROMBOPLASTIN TIME 22.4 sec (23.4-31.0); PROTHROMBIN TIME 10.8 sec (9.6-11.0)
[2019-12-08] VITALS (90 sets, daily range): BP systolic 31–207; BP diastolic 22–123
[2019-12-08 00:38] LABS: BASOPHILS % 0.2 % (0.0-2.0); HEMATOCRIT. 40.5 % (42.0-52.0); HEMOGLOBIN. 13.1 g/dL (14.0-18.0); LYMPHOCYTES % 9.8 % (20.0-50.0); MEAN CORPUSCULAR HEMOGLOBIN 30.5 pg (28.0-32.0); MEAN CORPUSCULAR VOLUME 94.4 fL (80.0-94.0); MEAN PLATELET VOLUME 9.7 fl (7.4-10.4); PLATELET 208 x1000/uL (130-400); RED BLOOD CELL COUNT 4.29 mill/uL (4.7-6.1); RED CELL DISTRIBUTION WIDTH 14.7 % (11.6-14.6)
[2019-12-08 00:44] LABS: CHLORIDE 135 mEq/L (98-107)
[2019-12-08 00:47] LABS: AMYLASE 267 IU/L (25-115)
[2019-12-08 00:48] LABS: PARTIAL THROMBOPLASTIN TIME 23.2 sec (23.4-31.0); PROTHROMBIN TIME 10.9 sec (9.6-11.0)
[2019-12-08 00:51] LABS: PHOSPHORUS 4.8 mg/dL (2.5-4.9)
[2019-12-08] MEDS: PHENYLEPHRINE 80 MG in SODIUM CHLORIDE 0.9% 492 ML IV PRN ×2 (05:25→13:45)
[2019-12-08 05:51] LABS: BASOPHILS % 0.1 % (0.0-2.0); HEMATOCRIT. 38.7 % (42.0-52.0); HEMOGLOBIN. 12.4 g/dL (14.0-18.0); LYMPHOCYTES % 10.2 % (20.0-50.0); MEAN CORPUSCULAR HEMOGLOBIN 30.3 pg (28.0-32.0); MEAN CORPUSCULAR VOLUME 94.8 fL (80.0-94.0); MEAN PLATELET VOLUME 9.9 fl (7.4-10.4); MONOCYTES % 4.1 % (2.0-8.0); NEUTROPHILS % 85.6 % (40.0-76.0); PLATELET 189 x1000/uL (130-400); RED BLOOD CELL COUNT 4.08 mill/uL (4.7-6.1); RED CELL DISTRIBUTION WIDTH 15.1 % (11.6-14.6)
[2019-12-08] MEDS: PIPERACILLIN/TAZOBACTAM 3.375 G in DEXT 5% WATER 100 ML IV SCH ×3 (05:54→17:43)
[2019-12-08] MEDS: DEXAMETHASONE 4MG/ML 1ML VIAL IV SCH ×3 (05:54→17:43)
[2019-12-08] MEDS: INSULIN LISPRO 100 UNITS/ML SUBCUT SCH ×3 (05:56→17:44)
[2019-12-08] MEDS: BLOOD SUGAR DIAGNOSTIC STRIP TEST SCH ×3 (05:57→17:27)
[2019-12-08 05:58] LABS: CHLORIDE 133 mEq/L (98-107)
[2019-12-08 06:03] LABS: AMYLASE 226 IU/L (25-115)
[2019-12-08 06:05] LABS: PHOSPHORUS 4.1 mg/dL (2.5-4.9)
[2019-12-08] MEDS: DEXTROSE 5% WATER 1,000 ML IV SCH ×3 (06:48→16:00)
[2019-12-08] MEDS: LEVETIRACETAM 500MG PREMIX 100 ML IV SCH (08:48)
[2019-12-08 09:17] LABS: BG BASE EXCESS -7.3 mmol/L (-2.0-2.0); BG CARBOXYHEMOGLOBIN 0.5 % (0.5-1.5); BG DEOXYHEMOGLOBIN 11.3 % (0.0-5.0); BG FRACTION INSPIRED OXYGEN 100; BG HCO3 ACT 18.6 mmol/L (22.0-26.0); BG METHEMOGLOBIN 0.2 % (0.0-1.5); BG OXYGEN SATURATION 88.6 % (92.0-98.5); BG PCO2 39.2 mmHg (35.0-45.0); BG PH 7.295 (7.350-7.450); BG PO2 59.2 mmHg (75.0-100.0); BG SAMPLE SITE A-LINE; BG TIDAL VOLUME(mL) 550 mL; BG TOTAL HEMOGLOBIN 12.3 g/dL (12.0-18.0); BG VENT MODE VENT - A/C; BG VENT RATE 22 set
[2019-12-08] MEDS: INSULIN GLARGINE UD 100 UNITS/ML SYR SUBCUT SCH (11:42)
[2019-12-08] MEDS: DESMOPRESSIN ACETATE IVPB 1 MCG in SODIUM CHLORIDE 0.9% 50 ML IV SCH (11:52)
[2019-12-08 11:57] LABS: BG CARBOXYHEMOGLOBIN 0.3 % (0.5-1.5); BG FRACTION INSPIRED OXYGEN 100; BG HCO3 ACT 16.8 mmol/L (22.0-26.0); BG METHEMOGLOBIN 0.1 % (0.0-1.5); BG OXYHEMOGLOBIN 90.6 % (94.0-97.0); BG PCO2 32.6 mmHg (35.0-45.0); BG PH 7.331 (7.350-7.450); BG PO2 62.3 mmHg (75.0-100.0); BG SAMPLE SITE A-LINE; BG TIDAL VOLUME(mL) 550 mL; BG TOTAL HEMOGLOBIN 12.4 g/dL (12.0-18.0); BG VENT MODE VENT - A/C; BG VENT RATE 22 set
[2019-12-08 15:37] LABS: HEMATOCRIT. 34.9 % (42.0-52.0); HEMOGLOBIN. 11.2 g/dL (14.0-18.0); MEAN CORPUSCULAR HEMOGLOBIN 30.4 pg (28.0-32.0); MEAN CORPUSCULAR VOLUME 94.4 fL (80.0-94.0); MEAN PLATELET VOLUME 9.7 fl (7.4-10.4); MONOCYTES % 2.8 % (2.0-8.0); NEUTROPHILS % 88.2 % (40.0-76.0); PLATELET 139 x1000/uL (130-400); RED BLOOD CELL COUNT 3.69 mill/uL (4.7-6.1); RED CELL DISTRIBUTION WIDTH 14.6 % (11.6-14.6)
[2019-12-08 15:39] LABS: CHLORIDE 131 mEq/L (98-107)
[2019-12-08 15:46] LABS: AMYLASE 123 IU/L (25-115)
[2019-12-08 15:47] LABS: PHOSPHORUS 2.6 mg/dL (2.5-4.9)
[2019-12-08 18:14] LABS: BG BASE EXCESS -7.8 mmol/L (-2.0-2.0); BG CARBOXYHEMOGLOBIN 0.3 % (0.5-1.5); BG DEOXYHEMOGLOBIN 4.9 % (0.0-5.0); BG FRACTION INSPIRED OXYGEN 100; BG HCO3 ACT 17.1 mmol/L (22.0-26.0); BG METHEMOGLOBIN 0.3 % (0.0-1.5); BG OXYGEN SATURATION 95.1 % (92.0-98.5); BG OXYHEMOGLOBIN 94.5 % (94.0-97.0); BG PCO2 32.8 mmHg (35.0-45.0); BG PH 7.335 (7.350-7.450); BG PO2 80.3 mmHg (75.0-100.0); BG SAMPLE SITE A-LINE; BG TIDAL VOLUME(mL) 550 mL; BG TOTAL HEMOGLOBIN 11.5 g/dL (12.0-18.0); BG VENT MODE VENT - A/C; BG VENT RATE 22 set
[2019-12-08 18:52] LABS: HEMATOCRIT. 34.2 % (42.0-52.0); LYMPHOCYTES % 10.6 % (20.0-50.0); MEAN CORPUSCULAR HEMOGLOBIN 30.4 pg (28.0-32.0); MEAN CORPUSCULAR VOLUME 94.6 fL (80.0-94.0); MEAN PLATELET VOLUME 9.8 fl (7.4-10.4); MONOCYTES % 3.7 % (2.0-8.0); NEUTROPHILS % 85.7 % (40.0-76.0); PLATELET 118 x1000/uL (130-400); RED BLOOD CELL COUNT 3.61 mill/uL (4.7-6.1); RED CELL DISTRIBUTION WIDTH 14.7 % (11.6-14.6)
[2019-12-08 18:55] LABS: CHLORIDE 130 mEq/L (98-107)
[2019-12-08 19:00] LABS: AMYLASE 108 IU/L (25-115)
[2019-12-08 19:01] LABS: PHOSPHORUS 2.4 mg/dL (2.5-4.9)
[2019-12-08 19:03] LABS: INR 1.1; PARTIAL THROMBOPLASTIN TIME 27.5 sec (23.4-31.0); PROTHROMBIN TIME 11.5 sec (9.6-11.0)
== END 2019-12-08 19:30 | disposition expired | DRG 23 ==
LOC: ER 11:38 → MICUNO 13:20 → EDBEDREQ 13:22 → EDBEDREQTM 13:22
PROVIDERS: ADMIT Internal Medicine; ATTEND Internal Medicine
PROC: 00960ZZ Drainage of Cerebral Ventricle, Open Approach (ICD-10-PCS; principal; 2019-12-04)
PROC: 001 Central Nervous System and Cranial Nerves, Bypass (ICD-10-PCS; 2019-12-04)
PROC: 4A107BD Monitoring of Intracranial Pressure, Via Natural or Artificial Opening (ICD-10-PCS; 2019-12-04)
PROC: 06HY33Z Insertion of Infusion Device into Lower Vein, Percutaneous Approach (ICD-10-PCS; 2019-12-04)
DX: I61.5 Nontraumatic intracerebral hemorrhage, intraventricular (principal); J96.00 Acute respiratory failure, unspecified whether with hypoxia or hypercapnia; N17.0 Acute kidney failure with tubular necrosis; I16.1 Hypertensive emergency; E44.1 Mild protein-calorie malnutrition; E87.0 Hyperosmolality and hypernatremia; G93.40 Encephalopathy, unspecified; I69.351 Hemiplegia and hemiparesis following cerebral infarction affecting right dominant side; E87.2 Acidosis; R40.20 Unspecified coma; I10 Essential (primary) hypertension; E78.5 Hyperlipidemia, unspecified; E11.9 Type 2 diabetes mellitus without complications; N40.0 Benign prostatic hyperplasia without lower urinary tract symptoms; R13.10 Dysphagia, unspecified; Z82.49 Family history of ischemic heart disease and other diseases of the circulatory system; Z91.14 Patient's other noncompliance with medication regimen; Z93.1 Gastrostomy status; Z68.35 Body mass index [BMI] 35.0-35.9, adult
CPT/HCPCS: 36415; 36600; 71045; 76700; 78610; 80048; 80053; 80061; 80305; 80320; 81003; 82150; 82248; 82375; 82550; 82805; 82947; 82962; 83036; 83605; 83615; 83721; 83735; 83880; 83935; 84100; 84145; 84443; 84450; 84460; 84484; 85025; 85379; 86850; 86900; 93005; 93970; 94002; 94003; 99291; A9512; J0690; J1100; J1815; J1953; J2150; J2250; J2270; J2370; J2405; J2543; J2597; J2704; J3480; J3490; J7030; J7040; J7050; J7060; J7070; G0480

== ENCOUNTER 2019-12-08 20:01 | Inpatient (IN) | payer MEDICARE, OTHER ==
[~2019-12-08] VITALS: Ht 170.2 cm; Wt 95.3 kg
[2019-12-08] MEDS ORDERED: LEVOTHYROXINE SODIUM 100 MCG/ VIAL IV STA (20:09)
[2019-12-08] MEDS ORDERED: DOBUTAMINE 250MG PREMIX 250 ML IV PRN (20:15)
[2019-12-08] MEDS ORDERED: HETASTARCH/NORMAL SALINE 500 ML PLAST..BAG IV ONE (20:15)
[2019-12-08] MEDS ORDERED: METHYLPREDNISOLONE 40MG/ML INJ IV ONE (20:15)
[2019-12-08 20:54] VITALS: BP_SYST 134; BP_SYST 143; BP_DIAS 78; BP_DIAS 83
[2019-12-08 21:00] VITALS: BP_SYST 131; BP_SYST 139; BP_DIAS 76; BP_DIAS 83
[2019-12-08 21:09] VITALS: BP_SYST 136; BP_SYST 145; BP_DIAS 79; BP_DIAS 91
[2019-12-08] MEDS ORDERED: WATER IV NR (21:30)
[2019-12-08] MEDS ORDERED: DEXT 5% IV NR (21:30)
[2019-12-08] MEDS ORDERED: METHYLPREDNISOLONE SOD IV NR (21:30)
[2019-12-08 22:00] VITALS: BP_SYST 132; BP_SYST 141; BP_DIAS 79; BP_DIAS 82
[2019-12-08] MEDS: LEVOTHYROXINE SODIUM 200 MCG in SODIUM CHLORIDE 0.9% 500 ML IV SCH (22:03)
[2019-12-08] MEDS: INSULIN REGULAR (DRIP) 100 UNITS in SODIUM CHLORIDE 0.9% 99 ML IV SCH (22:05)
[2019-12-08] MEDS: VASOPRESSIN 100 UNIT in SODIUM CHLORIDE 0.9% 95 ML IV SCH (22:06)
[2019-12-08] MEDS: PIPERACILLIN/TAZOBACTAM 3.375 G in DEXT 5% WATER 100 ML IV SCH (22:07)
[2019-12-08 23:00] VITALS: BP_SYST 127; BP_SYST 139; BP_DIAS 83; BP_DIAS 87
[2019-12-09] VITALS (25 sets, daily range): BP systolic 69–168; BP diastolic 53–104
[2019-12-09] MEDS ORDERED: PIPERACILLIN/TAZOBACTAM 3.375 G/VIAL IV SCH
[2019-12-09] MEDS: ALBUMIN HUMAN 25GM/500ML (5%) IV NR ×2 (00:44→01:27)
[2019-12-09 01:07] LABS: BASOPHILS % 0.1 % (0.0-2.0); HEMATOCRIT. 31.1 % (42.0-52.0); HEMOGLOBIN. 10.1 g/dL (14.0-18.0); LYMPHOCYTES % 11.3 % (20.0-50.0); MEAN CORPUSCULAR HEMOGLOBIN 30.5 pg (28.0-32.0); MEAN CORPUSCULAR VOLUME 93.8 fL (80.0-94.0); MEAN PLATELET VOLUME 9.5 fl (7.4-10.4); MONOCYTES % 3.4 % (2.0-8.0); NEUTROPHILS % 85.2 % (40.0-76.0); PLATELET 115 x1000/uL (130-400); RED BLOOD CELL COUNT 3.32 mill/uL (4.7-6.1); RED CELL DISTRIBUTION WIDTH 14.4 % (11.6-14.6)
[2019-12-09 01:09] LABS: BG BASE EXCESS -12.5 mmol/L (-2.0-2.0); BG CARBOXYHEMOGLOBIN 0.4 % (0.5-1.5); BG DEOXYHEMOGLOBIN 6.6 % (0.0-5.0); BG FRACTION INSPIRED OXYGEN 100; BG HCO3 ACT 12.7 mmol/L (22.0-26.0); BG METHEMOGLOBIN 0.1 % (0.0-1.5); BG OXYGEN SATURATION 93.4 % (92.0-98.5); BG OXYHEMOGLOBIN 92.9 % (94.0-97.0); BG PCO2 26.1 mmHg (35.0-45.0); BG PH 7.304 (7.350-7.450); BG PO2 75.1 mmHg (75.0-100.0); BG SAMPLE SITE A-LINE; BG TIDAL VOLUME(mL) 550 mL; BG VENT MODE VENT - A/C; BG VENT RATE 22 set
[2019-12-09 01:10] LABS: CHLORIDE 129 mEq/L (98-107)
[2019-12-09 01:13] LABS: AMYLASE 85 IU/L (25-115)
[2019-12-09 01:17] LABS: PHOSPHORUS 2.4 mg/dL (2.5-4.9)
[2019-12-09 01:21] LABS: INR 1.1; PARTIAL THROMBOPLASTIN TIME 26.5 sec (23.4-31.0); PROTHROMBIN TIME 11.6 sec (9.6-11.0)
[2019-12-09] MEDS ORDERED: SODIUM BICARBONATE IV SCH (01:30)
[2019-12-09] MEDS ORDERED: WATER FOR IRRIGATION STERILE IV SCH (01:30)
[2019-12-09] MEDS: SODIUM BICARBONATE 150 MEQ in WATER FOR INJECTION,STERILE 1,000 ML IV SCH ×2 (02:03→10:28)
[2019-12-09] MEDS: PIPERACILLIN/TAZOBACTAM 3.375 G in DEXT 5% WATER 100 ML IV SCH ×4 (02:03→21:16)
[2019-12-09 02:12] LABS: BG CARBOXYHEMOGLOBIN 0.3 % (0.5-1.5); BG DEOXYHEMOGLOBIN 9.5 % (0.0-5.0); BG FRACTION INSPIRED OXYGEN 80; BG HCO3 ACT 20.3 mmol/L (22.0-26.0); BG METHEMOGLOBIN 0.6 % (0.0-1.5); BG OXYGEN SATURATION 90.4 % (92.0-98.5); BG OXYHEMOGLOBIN 89.6 % (94.0-97.0); BG PCO2 44.6 mmHg (35.0-45.0); BG PH 7.277 (7.350-7.450); BG PIP 17 cmH2O; BG SAMPLE SITE A-LINE; BG TOTAL HEMOGLOBIN 7.6 g/dL (12.0-18.0); BG VENT MODE VENT - PCV; BG VENT RATE 12 set
[2019-12-09] MEDS: INSULIN REGULAR (DRIP) 100 UNITS in SODIUM CHLORIDE 0.9% 99 ML IV SCH ×3 (04:00→22:28)
[2019-12-09 05:15] LABS: BG BASE EXCESS -5.3 mmol/L (-2.0-2.0); BG CARBOXYHEMOGLOBIN 0.3 % (0.5-1.5); BG DEOXYHEMOGLOBIN 8.7 % (0.0-5.0); BG FRACTION INSPIRED OXYGEN 80; BG HCO3 ACT 20.6 mmol/L (22.0-26.0); BG METHEMOGLOBIN 0.1 % (0.0-1.5); BG OXYGEN SATURATION 91.3 % (92.0-98.5); BG OXYHEMOGLOBIN 90.9 % (94.0-97.0); BG PCO2 42.2 mmHg (35.0-45.0); BG PH 7.307 (7.350-7.450); BG PIP 23 cmH2O; BG PO2 67.1 mmHg (75.0-100.0); BG SAMPLE SITE A-LINE; BG VENT MODE VENT - PCV; BG VENT RATE 18 set
[2019-12-09 05:23] LABS: BASOPHILS % 0.1 % (0.0-2.0); HEMATOCRIT. 26.8 % (42.0-52.0); HEMOGLOBIN. 8.9 g/dL (14.0-18.0); LYMPHOCYTES % 11.5 % (20.0-50.0); MEAN CORPUSCULAR VOLUME 93.3 fL (80.0-94.0); MEAN PLATELET VOLUME 9.6 fl (7.4-10.4); MONOCYTES % 3.9 % (2.0-8.0); NEUTROPHILS % 84.5 % (40.0-76.0); PLATELET 83 x1000/uL (130-400); RED BLOOD CELL COUNT 2.87 mill/uL (4.7-6.1); RED CELL DISTRIBUTION WIDTH 14.2 % (11.6-14.6)
[2019-12-09 05:25] LABS: CLARITY URINE CLEAR (CLEAR); COLOR URINE YELLOW (YELLOW); KETONES URINE NEGATIVE (NEGATIVE); LEUKOCYTE ESTERASE URINE TRACE (NEGATIVE); NITRITE URINE NEGATIVE (NEGATIVE); OCCULT BLOOD URINE 2+ (NEGATIVE); PH URINE 5.5 (4.5-8.0); PROTEIN URINE 1+ (NEGATIVE); SPECIFIC GRAVITY URINE 1.014 (1.005-1.030)
[2019-12-09 05:26] LABS: CHLORIDE 126 mEq/L (98-107)
[2019-12-09 05:27] LABS: AMYLASE 85 IU/L (25-115)
[2019-12-09 05:31] LABS: INR 1.1; PARTIAL THROMBOPLASTIN TIME 27.9 sec (23.4-31.0); PROTHROMBIN TIME 11.8 sec (9.6-11.0)
[2019-12-09 05:33] LABS: PHOSPHORUS 2.5 mg/dL (2.5-4.9)
[2019-12-09] MEDS ORDERED: CALCIUM CHLORIDE 1GM/10ML SYR IV ONE (05:45)
[2019-12-09] MEDS: METHYLPREDNISOLONE SOD SUCC 125 MG/2 ML VIAL IV SCH ×2 (05:57→13:39)
[2019-12-09] MEDS ORDERED: METHYLPREDNISOLONE SOD SUCC 125 MG/2 ML VIAL IV SCH (06:00)
[2019-12-09] MEDS ORDERED: METHYLPREDNISOLONE 500 MG in D5W 100 ML IV SCH (06:00)
[2019-12-09] MEDS ORDERED: WATER IV NR (06:30)
[2019-12-09] MEDS ORDERED: DEXT 5% IV NR (06:30)
[2019-12-09] MEDS ORDERED: POTASSIUM CHLORIDE IV NR (06:30)
[2019-12-09] MEDS: LEVOTHYROXINE SODIUM 200 MCG in SODIUM CHLORIDE 0.9% 500 ML IV SCH ×3 (08:15→22:14)
[2019-12-09] MEDS ORDERED: ALBUMIN HUMAN 25GM/100ML (25%) IV NR (09:00)
[2019-12-09] MEDS ORDERED: NOREPINEPHRINE 8 MG in DEXT 5% WATER 242 ML IV PRN (09:00)
[2019-12-09] MEDS ORDERED: FUROSEMIDE 40MG/4ML VIAL IVP NR (09:30)
[2019-12-09 13:18] LABS: HEMATOCRIT. 27.1 % (42.0-52.0); HEMOGLOBIN. 9.1 g/dL (14.0-18.0); LYMPHOCYTES % 12.5 % (20.0-50.0); MEAN CORPUSCULAR HEMOGLOBIN 31.1 pg (28.0-32.0); MEAN CORPUSCULAR VOLUME 92.3 fL (80.0-94.0); MEAN PLATELET VOLUME 9.6 fl (7.4-10.4); MONOCYTES % 2.8 % (2.0-8.0); NEUTROPHILS % 84.7 % (40.0-76.0); PLATELET 82 x1000/uL (130-400); RED BLOOD CELL COUNT 2.93 mill/uL (4.7-6.1); RED CELL DISTRIBUTION WIDTH 14.2 % (11.6-14.6)
[2019-12-09 13:22] LABS: INR 1.1; PARTIAL THROMBOPLASTIN TIME 28.7 sec (23.4-31.0); PROTHROMBIN TIME 11.6 sec (9.6-11.0)
[2019-12-09 13:25] LABS: CHLORIDE 119 mEq/L (98-107)
[2019-12-09 13:30] LABS: AMYLASE 94 IU/L (25-115)
[2019-12-09 13:33] LABS: PHOSPHORUS 2.4 mg/dL (2.5-4.9)
[2019-12-09] MEDS: FUROSEMIDE 40MG/4ML VIAL IVP SCH ×3 (13:39→21:17)
[2019-12-09 13:51] LABS: CLARITY URINE CLEAR (CLEAR); COLOR URINE YELLOW (YELLOW); KETONES URINE NEGATIVE (NEGATIVE); LEUKOCYTE ESTERASE URINE 1+ (NEGATIVE); NITRITE URINE NEGATIVE (NEGATIVE); OCCULT BLOOD URINE 1+ (NEGATIVE); PH URINE 7.5 (4.5-8.0); PROTEIN URINE NEGATIVE (NEGATIVE); SPECIFIC GRAVITY URINE 1.011 (1.005-1.030); UROBILINOGEN URINE 0.2 E.U./dL (0.2-1.0)
[2019-12-09] MEDS ORDERED: MAGNESIUM 2 G PREMIX 50 ML IV NR (14:00)
[2019-12-09 14:16] LABS: BG BASE EXCESS 2.4 mmol/L (-2.0-2.0); BG CARBOXYHEMOGLOBIN 0.2 % (0.5-1.5); BG DEOXYHEMOGLOBIN 1.2 % (0.0-5.0); BG FRACTION INSPIRED OXYGEN 90; BG HCO3 ACT 24.3 mmol/L (22.0-26.0); BG METHEMOGLOBIN 0.3 % (0.0-1.5); BG OXYGEN SATURATION 98.8 % (92.0-98.5); BG OXYHEMOGLOBIN 98.3 % (94.0-97.0); BG PCO2 28.5 mmHg (35.0-45.0); BG PH 7.548 (7.350-7.450); BG PO2 224.1 mmHg (75.0-100.0); BG SAMPLE SITE RIGHT BRACHIAL; BG TOTAL HEMOGLOBIN 10.4 g/dL (12.0-18.0); BG VENT MODE VENT - PCV; BG VENT RATE 18 set
[2019-12-09 18:17] LABS: BG BASE EXCESS 7.8 mmol/L (-2.0-2.0); BG CARBOXYHEMOGLOBIN 0.3 % (0.5-1.5); BG DEOXYHEMOGLOBIN 1.1 % (0.0-5.0); BG FRACTION INSPIRED OXYGEN 80; BG HCO3 ACT 26.7 mmol/L (22.0-26.0); BG METHEMOGLOBIN 0.2 % (0.0-1.5); BG OXYGEN SATURATION 98.9 % (92.0-98.5); BG OXYHEMOGLOBIN 98.4 % (94.0-97.0); BG PCO2 20.9 mmHg (35.0-45.0); BG PH 7.725 (7.350-7.450); BG SAMPLE SITE RIGHT RADIAL; BG TOTAL HEMOGLOBIN 9.9 g/dL (12.0-18.0); BG VENT MODE VENT - PCV; BG VENT RATE 16 set
[2019-12-09 19:39] LABS: CHLORIDE 112 mEq/L (98-107)
[2019-12-09 19:42] LABS: AMYLASE 80 IU/L (25-115)
[2019-12-09 19:44] LABS: INR 1.1; PARTIAL THROMBOPLASTIN TIME 27.6 sec (23.4-31.0); PROTHROMBIN TIME 11.9 sec (9.6-11.0)
[2019-12-09 19:47] LABS: BASOPHILS % 0.1 % (0.0-2.0); HEMATOCRIT. 29.2 % (42.0-52.0); HEMOGLOBIN. 9.8 g/dL (14.0-18.0); LYMPHOCYTES % 15.9 % (20.0-50.0); MEAN CORPUSCULAR HEMOGLOBIN 31.2 pg (28.0-32.0); MEAN CORPUSCULAR VOLUME 92.6 fL (80.0-94.0); MEAN PLATELET VOLUME 9.5 fl (7.4-10.4); MONOCYTES % 4.3 % (2.0-8.0); NEUTROPHILS % 79.7 % (40.0-76.0); PLATELET 91 x1000/uL (130-400); RED BLOOD CELL COUNT 3.15 mill/uL (4.7-6.1); RED CELL DISTRIBUTION WIDTH 13.8 % (11.6-14.6)
[2019-12-09 19:50] LABS: CLARITY URINE CLEAR (CLEAR); COLOR URINE YELLOW (YELLOW); KETONES URINE NEGATIVE (NEGATIVE); LEUKOCYTE ESTERASE URINE NEGATIVE (NEGATIVE); NITRITE URINE NEGATIVE (NEGATIVE); OCCULT BLOOD URINE TRACE (NEGATIVE); PH URINE 8.5 (4.5-8.0); PROTEIN URINE NEGATIVE (NEGATIVE); SPECIFIC GRAVITY URINE 1.008 (1.005-1.030); UROBILINOGEN URINE 0.2 E.U./dL (0.2-1.0)
[2019-12-09 20:17] LABS: BG CARBOXYHEMOGLOBIN 0.3 % (0.5-1.5); BG DEOXYHEMOGLOBIN 1.9 % (0.0-5.0); BG FRACTION INSPIRED OXYGEN 80; BG HCO3 ACT 30.3 mmol/L (22.0-26.0); BG METHEMOGLOBIN 0.3 % (0.0-1.5); BG OXYGEN SATURATION 98.1 % (92.0-98.5); BG OXYHEMOGLOBIN 97.5 % (94.0-97.0); BG PCO2 48.3 mmHg (35.0-45.0); BG PH 7.415 (7.350-7.450); BG PO2 133.9 mmHg (75.0-100.0); BG SAMPLE SITE RIGHT RADIAL; BG TIDAL VOLUME(mL) 650 mL; BG TOTAL HEMOGLOBIN 10.6 g/dL (12.0-18.0); BG VENT MODE VENT - PCV; BG VENT RATE 10 set
[2019-12-09] MEDS: KCL 20MEQ/100ML PREMIX 100 ML IV SCH ×2 (21:55→23:14)
[2019-12-09] MEDS: VASOPRESSIN 100 UNIT in SODIUM CHLORIDE 0.9% 95 ML IV SCH (22:28)
[2019-12-09] MEDS: METHYLPREDNISOLONE 500 MG in D5W 100 ML IV SCH (22:28)
[2019-12-10] VITALS (24 sets, daily range): BP systolic 95–172; BP diastolic 56–111
[2019-12-10] MEDS: KCL 20MEQ/100ML PREMIX 100 ML IV SCH ×2 (00:16→01:24)
[2019-12-10 00:27] LABS: BG BASE EXCESS 0.1 mmol/L (-2.0-2.0); BG CARBOXYHEMOGLOBIN 0.3 % (0.5-1.5); BG DEOXYHEMOGLOBIN 2.3 % (0.0-5.0); BG FRACTION INSPIRED OXYGEN 80; BG HCO3 ACT 24.5 mmol/L (22.0-26.0); BG OXYGEN SATURATION 97.7 % (92.0-98.5); BG OXYHEMOGLOBIN 97.4 % (94.0-97.0); BG PH 7.416 (7.350-7.450); BG PO2 115.2 mmHg (75.0-100.0); BG SAMPLE SITE RIGHT RADIAL; BG TIDAL VOLUME(mL) 685 mL; BG TOTAL HEMOGLOBIN 10.9 g/dL (12.0-18.0); BG VENT MODE VENT - PCV; BG VENT RATE 10 set
[2019-12-10 01:08] LABS: CHLORIDE 113 mEq/L (98-107)
[2019-12-10 01:11] LABS: AMYLASE 69 IU/L (25-115)
[2019-12-10 01:15] LABS: PHOSPHORUS 3.8 mg/dL (2.5-4.9)
[2019-12-10] MEDS: FUROSEMIDE 40MG/4ML VIAL IVP SCH ×3 (01:26→14:48)
[2019-12-10 01:32] LABS: HEMATOCRIT. 27.3 % (42.0-52.0); HEMOGLOBIN. 9.3 g/dL (14.0-18.0); MEAN CORPUSCULAR VOLUME 90.8 fL (80.0-94.0); MEAN PLATELET VOLUME 9.4 fl (7.4-10.4); PLATELET 85 x1000/uL (130-400); RED CELL DISTRIBUTION WIDTH 13.8 % (11.6-14.6)
[2019-12-10 01:56] LABS: CLARITY URINE CLEAR (CLEAR); COLOR URINE YELLOW (YELLOW); KETONES URINE NEGATIVE (NEGATIVE); LEUKOCYTE ESTERASE URINE NEGATIVE (NEGATIVE); NITRITE URINE NEGATIVE (NEGATIVE); OCCULT BLOOD URINE 1+ (NEGATIVE); PH URINE 8.5 (4.5-8.0); PROTEIN URINE TRACE (NEGATIVE); SPECIFIC GRAVITY URINE 1.012 (1.005-1.030); UROBILINOGEN URINE 0.2 E.U./dL (0.2-1.0)
[2019-12-10 02:11] LABS: INR 1.1; PARTIAL THROMBOPLASTIN TIME 27.5 sec (23.4-31.0); PROTHROMBIN TIME 11.4 sec (9.6-11.0)
[2019-12-10] MEDS: PIPERACILLIN/TAZOBACTAM 3.375 G in DEXT 5% WATER 100 ML IV SCH ×4 (03:58→22:21)
[2019-12-10] MEDS: LEVOTHYROXINE SODIUM 200 MCG in SODIUM CHLORIDE 0.9% 500 ML IV SCH ×3 (04:21→18:32)
[2019-12-10] MEDS: METHYLPREDNISOLONE 500 MG in D5W 100 ML IV SCH ×2 (05:26→16:34)
[2019-12-10 06:08] LABS: BASOPHILS % 0.1 % (0.0-2.0); CHLORIDE 112 mEq/L (98-107); EOSINOPHILS % 0.1 % (0.0-5.0); HEMATOCRIT. 26.9 % (42.0-52.0); MEAN CORPUSCULAR HEMOGLOBIN 30.7 pg (28.0-32.0); MEAN CORPUSCULAR VOLUME 91.4 fL (80.0-94.0); MEAN PLATELET VOLUME 9.1 fl (7.4-10.4); MONOCYTES % 4.2 % (2.0-8.0); NEUTROPHILS % 84.6 % (40.0-76.0); PLATELET 81 x1000/uL (130-400); RED BLOOD CELL COUNT 2.94 mill/uL (4.7-6.1)
[2019-12-10 06:12] LABS: INR 1.1; PARTIAL THROMBOPLASTIN TIME 26.5 sec (23.4-31.0); PROTHROMBIN TIME 11.4 sec (9.6-11.0)
[2019-12-10 06:13] LABS: AMYLASE 62 IU/L (25-115)
[2019-12-10 06:13] LABS: CLARITY URINE CLEAR (CLEAR); COLOR URINE YELLOW (YELLOW); KETONES URINE NEGATIVE (NEGATIVE); LEUKOCYTE ESTERASE URINE 1+ (NEGATIVE); NITRITE URINE NEGATIVE (NEGATIVE); OCCULT BLOOD URINE 1+ (NEGATIVE); PROTEIN URINE 1+ (NEGATIVE); SPECIFIC GRAVITY URINE 1.014 (1.005-1.030); UROBILINOGEN URINE 0.2 E.U./dL (0.2-1.0)
[2019-12-10 06:16] LABS: BG BASE EXCESS 7.2 mmol/L (-2.0-2.0); BG CARBOXYHEMOGLOBIN 0.3 % (0.5-1.5); BG DEOXYHEMOGLOBIN 3.3 % (0.0-5.0); BG FRACTION INSPIRED OXYGEN 80; BG HCO3 ACT 33.5 mmol/L (22.0-26.0); BG METHEMOGLOBIN 0.1 % (0.0-1.5); BG OXYGEN SATURATION 96.7 % (92.0-98.5); BG OXYHEMOGLOBIN 96.3 % (94.0-97.0); BG PCO2 56.3 mmHg (35.0-45.0); BG PH 7.392 (7.350-7.450); BG PO2 100.2 mmHg (75.0-100.0); BG SAMPLE SITE LEFT RADIAL; BG TIDAL VOLUME(mL) 680 mL; BG TOTAL HEMOGLOBIN 10.6 g/dL (12.0-18.0); BG VENT MODE VENT - PCV; BG VENT RATE 10 set
[2019-12-10 06:16] LABS: PHOSPHORUS 3.7 mg/dL (2.5-4.9)
[2019-12-10] MEDS: INSULIN REGULAR (DRIP) 100 UNITS in SODIUM CHLORIDE 0.9% 99 ML IV SCH ×2 (06:45→16:35)
[2019-12-10 07:54] LABS: PLATELET ESTIMATE DECREAS
[2019-12-10 11:30] LABS: BG BASE EXCESS 9.2 mmol/L (-2.0-2.0); BG CARBOXYHEMOGLOBIN 0.3 % (0.5-1.5); BG DEOXYHEMOGLOBIN 2.2 % (0.0-5.0); BG FRACTION INSPIRED OXYGEN 80; BG METHEMOGLOBIN 0.3 % (0.0-1.5); BG OXYGEN SATURATION 97.8 % (92.0-98.5); BG OXYHEMOGLOBIN 97.2 % (94.0-97.0); BG PCO2 48.4 mmHg (35.0-45.0); BG PH 7.465 (7.350-7.450); BG PO2 109.2 mmHg (75.0-100.0); BG SAMPLE SITE RIGHT RADIAL; BG TOTAL HEMOGLOBIN 9.9 g/dL (12.0-18.0); BG VENT MODE VENT - PCV; BG VENT RATE 12 set
[2019-12-10 12:48] LABS: BASOPHILS % 0.1 % (0.0-2.0); HEMATOCRIT. 26.5 % (42.0-52.0); HEMOGLOBIN. 8.9 g/dL (14.0-18.0); LYMPHOCYTES % 11.8 % (20.0-50.0); MEAN CORPUSCULAR HEMOGLOBIN 30.9 pg (28.0-32.0); MEAN CORPUSCULAR VOLUME 91.7 fL (80.0-94.0); MEAN PLATELET VOLUME 9.5 fl (7.4-10.4); MONOCYTES % 4.7 % (2.0-8.0); NEUTROPHILS % 83.4 % (40.0-76.0); PLATELET 84 x1000/uL (130-400); RED BLOOD CELL COUNT 2.88 mill/uL (4.7-6.1); RED CELL DISTRIBUTION WIDTH 13.8 % (11.6-14.6)
[2019-12-10 12:52] LABS: BG BASE EXCESS 7.9 mmol/L (-2.0-2.0); BG CARBOXYHEMOGLOBIN 0.3 % (0.5-1.5); BG DEOXYHEMOGLOBIN 3.5 % (0.0-5.0); BG FRACTION INSPIRED OXYGEN 80; BG HCO3 ACT 30.9 mmol/L (22.0-26.0); BG METHEMOGLOBIN 0.3 % (0.0-1.5); BG OXYGEN SATURATION 96.5 % (92.0-98.5); BG OXYHEMOGLOBIN 95.9 % (94.0-97.0); BG PH 7.539 (7.350-7.450); BG PO2 81.2 mmHg (75.0-100.0); BG SAMPLE SITE RIGHT RADIAL; BG TOTAL HEMOGLOBIN 10.3 g/dL (12.0-18.0); BG VENT MODE VENT - PCV; BG VENT RATE 14 set
[2019-12-10 12:55] LABS: CHLORIDE 112 mEq/L (98-107)
[2019-12-10 13:01] LABS: AMYLASE 59 IU/L (25-115)
[2019-12-10 13:04] LABS: PHOSPHORUS 3.2 mg/dL (2.5-4.9)
[2019-12-10 13:17] LABS: PARTIAL THROMBOPLASTIN TIME 26.5 sec (23.4-31.0)
[2019-12-10 14:42] LABS: BG BASE EXCESS 6.6 mmol/L (-2.0-2.0); BG CARBOXYHEMOGLOBIN 0.3 % (0.5-1.5); BG DEOXYHEMOGLOBIN 4.1 % (0.0-5.0); BG FRACTION INSPIRED OXYGEN 80; BG HCO3 ACT 28.6 mmol/L (22.0-26.0); BG METHEMOGLOBIN 0.2 % (0.0-1.5); BG OXYGEN SATURATION 95.9 % (92.0-98.5); BG OXYHEMOGLOBIN 95.4 % (94.0-97.0); BG PCO2 31.3 mmHg (35.0-45.0); BG PH 7.578 (7.350-7.450); BG PO2 77.4 mmHg (75.0-100.0); BG SAMPLE SITE RIGHT RADIAL; BG TOTAL HEMOGLOBIN 9.7 g/dL (12.0-18.0); BG VENT MODE VENT - PCV; BG VENT RATE 12 set
[2019-12-10] MEDS ORDERED: POTASSIUM CHLORIDE INJ 40 MEQ in DEXT 5% WATER 250 ML IV SCH (15:00)
[2019-12-10 16:05] LABS: BG BASE EXCESS 8.8 mmol/L (-2.0-2.0); BG CARBOXYHEMOGLOBIN 0.3 % (0.5-1.5); BG DEOXYHEMOGLOBIN 4.7 % (0.0-5.0); BG FRACTION INSPIRED OXYGEN 80; BG METHEMOGLOBIN 0.2 % (0.0-1.5); BG OXYGEN SATURATION 95.3 % (92.0-98.5); BG OXYHEMOGLOBIN 94.8 % (94.0-97.0); BG PH 7.493 (7.350-7.450); BG SAMPLE SITE RIGHT RADIAL; BG TOTAL HEMOGLOBIN 9.8 g/dL (12.0-18.0); BG VENT MODE VENT - PCV; BG VENT RATE 10 set
[2019-12-10 17:49] LABS: BG BASE EXCESS 2.8 mmol/L (-2.0-2.0); BG CARBOXYHEMOGLOBIN 0.3 % (0.5-1.5); BG DEOXYHEMOGLOBIN 4.3 % (0.0-5.0); BG FRACTION INSPIRED OXYGEN 80; BG HCO3 ACT 27.2 mmol/L (22.0-26.0); BG METHEMOGLOBIN 0.3 % (0.0-1.5); BG OXYGEN SATURATION 95.7 % (92.0-98.5); BG OXYHEMOGLOBIN 95.1 % (94.0-97.0); BG PCO2 41.1 mmHg (35.0-45.0); BG PH 7.439 (7.350-7.450); BG PO2 85.9 mmHg (75.0-100.0); BG SAMPLE SITE RIGHT RADIAL; BG TOTAL HEMOGLOBIN 10.9 g/dL (12.0-18.0); BG VENT MODE VENT - PCV; BG VENT RATE 10 set
[2019-12-10 18:56] LABS: BASOPHILS % 0.1 % (0.0-2.0); HEMATOCRIT. 26.2 % (42.0-52.0); HEMOGLOBIN. 8.7 g/dL (14.0-18.0); LYMPHOCYTES % 8.9 % (20.0-50.0); MEAN CORPUSCULAR HEMOGLOBIN 30.7 pg (28.0-32.0); MEAN CORPUSCULAR VOLUME 91.8 fL (80.0-94.0); MEAN PLATELET VOLUME 9.5 fl (7.4-10.4); MONOCYTES % 5.7 % (2.0-8.0); NEUTROPHILS % 85.3 % (40.0-76.0); PLATELET 81 x1000/uL (130-400); RED BLOOD CELL COUNT 2.85 mill/uL (4.7-6.1); RED CELL DISTRIBUTION WIDTH 14.2 % (11.6-14.6)
[2019-12-10 19:02] LABS: CHLORIDE 113 mEq/L (98-107)
[2019-12-10 19:04] LABS: INR 1.1; PARTIAL THROMBOPLASTIN TIME 26.5 sec (23.4-31.0); PROTHROMBIN TIME 11.3 sec (9.6-11.0)
[2019-12-10 19:08] LABS: AMYLASE 51 IU/L (25-115)
[2019-12-10] MEDS ORDERED: KCL 20MEQ/100ML PREMIX 100 ML IV NR (19:45)
[2019-12-10 21:29] LABS: BG BASE EXCESS 7.8 mmol/L (-2.0-2.0); BG CARBOXYHEMOGLOBIN 0.3 % (0.5-1.5); BG DEOXYHEMOGLOBIN 2.6 % (0.0-5.0); BG FRACTION INSPIRED OXYGEN 100; BG HCO3 ACT 32.9 mmol/L (22.0-26.0); BG METHEMOGLOBIN 0.3 % (0.0-1.5); BG OXYGEN SATURATION 97.4 % (92.0-98.5); BG OXYHEMOGLOBIN 96.8 % (94.0-97.0); BG PCO2 49.1 mmHg (35.0-45.0); BG PH 7.444 (7.350-7.450); BG PO2 110.6 mmHg (75.0-100.0); BG SAMPLE SITE RIGHT RADIAL; BG TOTAL HEMOGLOBIN 9.8 g/dL (12.0-18.0); BG VENT MODE VENT - PCV
[2019-12-10] MEDS ORDERED: MANNITOL 20% 500 ML IV ONE (22:13)
[2019-12-10] MEDS ORDERED: HEPARIN 10,000 UNITS/ML VIAL IV SCH (22:21)
[2019-12-10] MEDS ORDERED: MANNITOL 20% 500 ML IV NR (22:22)
[2019-12-10] MEDS ORDERED: FUROSEMIDE 100MG/10ML VIAL IV NR (22:30)
[2019-12-10] MEDS ORDERED: VECURONIUM BROMIDE 10 MG/VIAL IV ONE (23:26)
[2019-12-11] MEDS ORDERED: DOPAMINE 800MG PREMIX (DOUBLE) 250 ML IV ONE (02:32)
== END 2019-12-10 23:10 | disposition expired | DRG 950 ==
LOC: MICUNO 20:01
PROC: 5A1945Z Respiratory Ventilation, 24-96 Consecutive Hours (ICD-10-PCS; principal; 2019-12-08)
PROC: 0TT20ZZ Resection of Bilateral Kidneys, Open Approach (ICD-10-PCS; 2019-12-10)
CPT/HCPCS: 36415; 36600; 71045; 71250; 74176; 80053; 81003; 82150; 82248; 82375; 82805; 82962; 83605; 83615; 83735; 83930; 84100; 85025; 87070; 94003; J1250; J1265; J1644; J1815; J1940; J2543; J2930; J3475; J3480; J3490; J7040; J7050; J7060; P9041; P9047